=== PATIENT | female | born 1930 | race Caucasian/White ===

== ENCOUNTER 2017-03-04 07:57 | Inpatient (IN) ==
--- NOTE | 2017-03-04 08:25 | Emergency Department Note ---
Disposition Clinical Impression: Paroxysmal a-fib Disposition: Admitted As Inpatient Condition: Good Time of Disposition: 10:27 General Adult HPI - General Chief complaint: ED Weakness Stated complaint: general weakness Time Seen by Provider: 03/04/17 08:04 Source: EMS Limitations: no limitations Nursing Notes Reviewed: Yes Vital Signs Reviewed: Yes - History of Present Illness HPI Narrative: Patient has been on prednisone and Lasix for about a week. This morning he states that she got very weak. She states she is feeling better at this time. She does have a history of A. fib but is in A. fib at this time. Has been mentating appropriately for EMS throughout transport. Pain Scale: 0 - Related Data Home Medications Medication Instructions Recorded Confirmed Potassium Chloride [Klor-Con 10] 10 meq PO DAILY 10/19/16 03/04/17 Pravastatin Sodium [Pravachol] 20 mg PO DAILY 10/19/16 03/04/17 Raloxifene [Evista] 60 mg PO DAILY 10/19/16 03/04/17 Travoprost [Travatan Z] 1 drop LEFT EYE QPM 10/19/16 03/04/17 Aspirin [Ecotrin] 325 mg PO DAILY 03/04/17 03/04/17 Bisacodyl [Dulcolax] 5 mg PO DAILY 03/04/17 03/04/17 Calcium Carb,Cit/D3/Phytostrol 1 each PO DAILY 03/04/17 03/04/17 [Citracal D + Heart Health Tab] DiphenhydraMINE [Benadryl] 25 mg PO Q4HR PRN 03/04/17 03/04/17 Furosemide [Lasix] 20 mg PO DAILY 03/04/17 03/04/17 Metoprolol XL (24 HR) Succ [Toprol 50 mg PO DAILY 03/04/17 03/04/17 XL] Multivit-Min/Iron/Folic/Lutein 1 each PO DAILY 03/04/17 03/04/17 [Centrum Silver Women Tablet] Timolol Maleate 0.5% [Timolol 1 drop LEFT EYE QAM 03/04/17 03/04/17 Maleate 0.5%] predniSONE [PredniSONE] 20 mg PO DAILY 03/04/17 03/04/17 Allergies Allergy/AdvReac Type Severity Reaction Status Date / Time No Known Allergies Allergy Verified 10/19/16 16:23 Review of Systems: Denies any fevers or chills. Denies any headaches or vision changes. Does report generalized weakness earlier this morning that is since resolved. Reports lower extremity edema that is significantly improved. Denies any shortness of breath or chest pain. Denies any nausea vomiting or diarrhea. Denies any abdominal pain. Denies any urinary symptoms hematochezia melena or hematuria. All systems ED: reviewed and negative except as stated. Past Medical History - Past Medical History Attestation: Yes The following information was validated with the patient. Medical history: Reports: atrial fibrillation, hypertension, other Psychiatric history: Reports: no psych history - Social History Smoking Status: Never smoker Smokeless Tobacco Status: No Alcohol use: Reports: none Drug use: Reports: none Physical Exam - General Limitations: no limitations General appearance: alert, in no apparent distress - Head Head exam: atraumatic, normocephalic, normal inspection - Eye Eye exam: Present: normal appearance, PERRL, EOMI. Absent: scleral icterus - ENT ENT exam: normal exam, normal oropharynx, mucous membranes moist - Neck Neck exam: Present: normal inspection, full ROM, trachea midline. Absent: tenderness, meningismus - Chest Chest inspection: Present: normal inspection, symmetric chest wall rise. Absent : tenderness, rash - Respiratory Respiratory exam: Present: normal lung sounds bilaterally. Absent: respiratory distress, wheezes - Cardiovascular Cardiovascular exam: Present: tachycardia, irregular rhythm, normal heart sounds - Abdominal Exam Abdominal exam: Present: soft, Non-Tender, normal bowel sounds, other ( umbilical hernia, not painful, chronic). Absent: tenderness, distention, guarding, rebound, rigidity, organomegaly - Extremities Exam Extremities exam: Present: normal inspection, full ROM, normal capillary refill , pedal edema (Mild). Absent: tenderness - Back Exam Back exam: Present: normal inspection, full ROM. Absent: tenderness, CVA tenderness (R), CVA tenderness (L) - Neurological Exam Neurological exam: Present: alert, oriented X3 - Psychiatric Psychiatric exam: Present: normal affect, normal mood - Skin Skin exam: Present: warm, dry, intact, normal color, other (Lower extremity skin is shrunken. Appears to have been distended recently but is significantly wrinkled at this time.). Absent: rash, cyanosis, diaphoresis, erythema Course Course Narrative: Well-appearing female patient presenting to emergency department complaining of weakness that started today. She states that she has been on Lasix as well as prednisone. She states that she was on an unknown antibiotic and got a rash so she was then placed on prednisone. She states that she is tapering this down currently. She states the Lasix has worked well to decrease the swelling in her lower extremities. She has been on this for several days as well. She states that this morning she woke up and went to the bathroom but just felt very weak. Percent advises that she was standing at the sink and was too weak to walk or talk. Patient states that she could talk she was just too tired and weak. She denies any episodes of shortness of breath or chest pain associated with this. She states that at this time she is feeling 100% better. Patient's lung sounds are clear heart tones are normal. I do not appreciate any rashes to her body. She states that this has cleared up. She is in A. fib at this time. She states that she does have a history of being in A. fib but is only taking aspirin daily. She states that she thinks that she goes in and out of atrial fibrillation. She denies ever having to be cardioverted. She states she has also had a discussion with her doctor about being on anticoagulation that she did not understand the whole conversation. We will do a cardiac workup on the patient at this time. I anticipate admission for her A. fib. - Reevaluation(s) Reevaluation #1: I cannot find a history of patient being worked up for her atrial fibrillation. We will do a bedside fecal occult blood test due to patient's hemoglobin beings minimally low. We will begin patient on heparin and have her admitted to the hospital for A. fib. We will give her morning dose of Toprol to help rate control her while she is here. I cannot find any information that she has seen a deputy director of finance before for this. She states that she has. Time: 10:04 - Consultations Consultation #1: I spoke with Dr Mark. He is agreeable with the plan and to admit to the hospitalist. Time: 10:22 Consultation #2: I spoke with the nurse practitioner Jael. She is excepting the patient's stable condition. I made her aware that we are still waiting on the fecal occult blood to come back and if negative she states she will place the patient on heparin. I will no longer be following this patient. Time: 10:27 Vital Signs Temperature 97.4 F L 03/04/17 08:04 Pulse Rate 108 03/04/17 08:04 Respiratory Rate 14 03/04/17 08:04 Blood Pressure 120/89 03/04/17 08:04 O2 Sat by Pulse Oximetry 100 03/04/17 08:04 Temperature 97.6 F 03/04/17 16:30 Pulse Rate 72 03/04/17 16:30 Respiratory Rate 16 03/04/17 16:30 Blood Pressure 129/79 03/04/17 16:30 O2 Sat by Pulse Oximetry 98 03/04/17 16:30 Oxygen Delivery Oxygen Delivery Room Air Medical Decision Making - Medical Records Medical records reviewed: Yes I reviewed the patient's medical records. - Lab Data Lab results reviewed: Yes I reviewed the patient's lab results. Result diagrams: 03/04/17 08:34 03/04/17 08:34 Lab Results 03/04/17 03/04/17 03/04/17 Range/Units 08:14 08:34 08:34 WBC 21.4 H (4.3-11.1) K/mcL RBC 3.61 L (3.82-4.97) M/mcL Hgb 10.2 L (11.5-15.4) g/dL Hct 31.2 L (35.3-44.9) % MCV 86.4 (83.0-100.0) fL MCH 28.3 (28.0-33.3) pg MCHC 32.7 (31.6-35.5) g/dL RDW 13.6 (11.5-14.5) % Plt Count 340 (140-400) K/mcL MPV 10.0 (9.4-12.4) fL Immature Gran % 1.4 (0-4) % Seg Neutrophils % 68.8 % Lymphocytes % 19.4 % Monocytes % 9.9 % Eosinophils % 0.4 % Basophils % 0.1 % Neutrophils # 14.8 H (1.6-8.9) K/mcL Lymphocytes # 4.2 (0.6-4.6) K/mcL Monocytes # 2.1 H (0.0-1.3) K/mcL Eosinophils # 0.1 (0.0-0.6) K/mcL Basophils # 0.0 (0.0-0.2) K/mcL Immature Plt Fraction 4.7 (1.1-6.1) % Sodium 137 (136-145) mEq/L Potassium 3.7 (3.5-4.5) mEq/L Chloride 101 (98-109) mEq/L Carbon Dioxide 29 (19-29) mEq/L BUN 46 H (7-20) mg/dL Creatinine 0.67 (0.57-1.11) mg/dL Est GFR ( Amer) > 60 (> 60) Est GFR (Non-Af Amer) > 60 (> 60) BUN/Creatinine Ratio 69 H (6-26) Glucose 88 (70-99) mg/dL POC Glucose 97 H (58-89) Calculated Osmolality 295 (280-300) Calcium 8.4 L (8.6-10.8) mg/dL Total Bilirubin 0.5 (0.2-1.2) mg/dL AST 16 (5-34) Units/L ALT 18 (0-55) Units/L Alkaline Phosphatase 38 (38-126) Units/L Troponin I (0-0.03) ng/mL Serum Total Protein 6.3 (6.0-8.3) g/dL Albumin 3.2 L (3.5-5.0) g/dL Globulin 3.1 (2.4-3.5) g/dL Albumin/Globulin Ratio 1.0 L (1.1-2.2) TSH 1.247 (0.350-4.840) mcIU/mL Urine Color (Yellow) Urine Clarity (Clear) Urine pH (5.0-8.0) pH Units Ur Specific [place] (1.010-1.025) Urine Protein (Neg-Trace) mg/dL Urine Glucose (UA) (Normal) mg/dL Urine Ketones (Negative) mg/dL Urine Blood (Negative) Urine Nitrite (Negative) Urine Bilirubin (Negative) Urine Urobilinogen (Normal) mg/dL Ur Leukocyte Esterase (Negative) Ur Culture Indicated? (NO) Stool Occult Blood (Negative) 03/04/17 03/04/17 03/04/17 Range/Units 08:34 09:40 09:57 WBC (4.3-11.1) K/mcL RBC (3.82-4.97) M/mcL Hgb (11.5-15.4) g/dL Hct (35.3-44.9) % MCV (83.0-100.0) fL MCH (28.0-33.3) pg MCHC (31.6-35.5) g/dL RDW (11.5-14.5) % Plt Count (140-400) K/mcL MPV (9.4-12.4) fL Immature Gran % (0-4) % Seg Neutrophils % % Lymphocytes % % Monocytes % % Eosinophils % % Basophils % % Neutrophils # (1.6-8.9) K/mcL Lymphocytes # (0.6-4.6) K/mcL Monocytes # (0.0-1.3) K/mcL Eosinophils # (0.0-0.6) K/mcL Basophils # (0.0-0.2) K/mcL Immature Plt Fraction (1.1-6.1) % Sodium (136-145) mEq/L Potassium (3.5-4.5) mEq/L Chloride (98-109) mEq/L Carbon Dioxide (19-29) mEq/L BUN (7-20) mg/dL Creatinine (0.57-1.11) mg/dL Est GFR ( Amer) (> 60) Est GFR (Non-Af Amer) (> 60) BUN/Creatinine Ratio (6-26) Glucose (70-99) mg/dL POC Glucose (58-89) Calculated Osmolality (280-300) Calcium (8.6-10.8) mg/dL Total Bilirubin (0.2-1.2) mg/dL AST (5-34) Units/L ALT (0-55) Units/L Alkaline Phosphatase (38-126) Units/L Troponin I 0.02 (0-0.03) ng/mL Serum Total Protein (6.0-8.3) g/dL Albumin (3.5-5.0) g/dL Globulin (2.4-3.5) g/dL Albumin/Globulin Ratio (1.1-2.2) TSH (0.350-4.840) mcIU/mL Urine Color Yellow (Yellow) Urine Clarity Clear (Clear) Urine pH 6.0 (5.0-8.0) pH Units Ur Specific [place] 1.023 (1.010-1.025) Urine Protein Negative (Neg-Trace) mg/dL Urine Glucose (UA) Normal (Normal) mg/dL Urine Ketones Negative (Negative) mg/dL Urine Blood Negative (Negative) Urine Nitrite Negative (Negative) Urine Bilirubin Negative (Negative) Urine Urobilinogen Normal (Normal) mg/dL Ur Leukocyte Esterase Negative (Negative) Ur Culture Indicated? NO (NO) Stool Occult Blood Negative (Negative) - Radiology Data Radiology results reviewed: Yes I reviewed the patient's radiology results. Chest X-Ray 03/04/17 08:07 IMPRESSION: No acute cardiopulmonary disease. D/ / Man Barnard MD / Man Barnard MD Interpreting Provider: Man Barnard MD - EKG Data EKG #1 EKG attestation: Yes I reviewed and interpreted this EKG. EKG results narrative: A. fib with RVR at a rate of 106. QRS duration is 82. QT is 343. QTC is 405. No signs of acute ischemia. Patient's previous EKG was a normal sinus rhythm dated 06/22/2012. Attestation Statement - Attestation Attestation: I, Ke Chery, examined this patient and my medical decision-making was reviewed with the ENGINE BUILDER/PA/Advanced Practice Nurse/Resident Physician. I agree with the documented findings, disposition and treatment plan as described except to the extent set forth below. 87-year-old female presents with concerns of acute onset weakness and near syncopal episode. Patient is in atrial fibrillation, she does have a history of atrial fibrillation but is unsure whether or not she is always and such rhythm. Patient states she woke this morning and felt considerably weak and fatigued const improved after laying down but returned again after standing. Patient reports she was recently diagnosed with congestive heart failure, they increased her Lasix to decrease the amount of fluid in her legs and also prescribed prednisone for a rash on her legs.. Patient states her symptoms have improved significantly since the onset of those medications. She felt well 2 days ago. Patient does not take any anticoagulant medication. She states that she was spoken to her by her primary care provider but she did not fully understand why anticoagulation was 4 and thus did not start it. Patient' s rate was controlled with her home dose of metoprolol. Patient felt comfortable with the plan for admission to the hospital for further care and evaluation of her weakness, near syncope and intrafibrillation with RVR.
[2017-03-04 08:42] LABS: Basophils % 0.1 %; Eosinophils # 0.1 K/mcL (0.0-0.6); Eosinophils % 0.4 %; Hematocrit 31.2 % (35.3-44.9); Hemoglobin 10.2 g/dL (11.5-15.4); Immature Granulocytes % 1.4 % (0-4); Immature Platelets 4.7 % (1.1-6.1); Lymphocytes # 4.2 K/mcL (0.6-4.6); Lymphocytes % 19.4 %; Mean Corpuscular HGB Conc 32.7 g/dL (31.6-35.5); Mean Corpuscular Hemoglobin 28.3 pg (28.0-33.3); Mean Corpuscular Volume 86.4 fL (83.0-100.0); Monocytes # 2.1 K/mcL (0.0-1.3); Monocytes % 9.9 %; Neutrophils # 14.8 K/mcL (1.6-8.9); Platelet Count 340 K/mcL (140-400); Red Blood Count 3.61 M/mcL (3.82-4.97); Red Cell Distribution Width 13.6 % (11.5-14.5); Segmented Neutrophils % 68.8 %
[2017-03-04 08:53] LABS: Alanine Aminotransferase 18 Units/L (0-55); Albumin 3.2 g/dL (3.5-5.0); Alkaline Phosphatase 38 Units/L (38-126); Aspartate Amino Transferase 16 Units/L (5-34); BUN/Creatinine Ratio 69 (6-26); Bilirubin,Total 0.5 mg/dL (0.2-1.2); Blood Urea Nitrogen 46 mg/dL (7-20); Calcium 8.4 mg/dL (8.6-10.8); Carbon Dioxide 29 mEq/L (19-29); Chloride 101 mEq/L (98-109); Globulin 3.1 g/dL (2.4-3.5); Glucose 88 mg/dL (70-99); Osmolality,Calculated 295 (280-300); Potassium 3.7 mEq/L (3.5-4.5); Sodium 137 mEq/L (136-145); Total Protein 6.3 g/dL (6.0-8.3); eGFR For African Americans > 60 (> 60); eGFR For Non-African Americans > 60 (> 60)
[2017-03-04 09:14] LABS: Thyroid Stimulating Hormone 1.247 mcIU/mL (0.350-4.840)
[2017-03-04 09:55] LABS: Bilirubin,Urine Negative (Negative); Blood,Urine Negative (Negative); Clarity,Urine Clear (Clear); Color,Urine Yellow (Yellow); Glucose,Urine (UA) Normal (Normal); Ketones,Urine Negative (Negative); Leukocyte Esterase,Urine Negative (Negative); Nitrite,Urine Negative (Negative); Protein,Urine Negative (Neg-Trace); Specific Gravity,Urine 1.023 (1.010-1.025); Urobilinogen,Urine Normal (Normal)
[2017-03-04] MEDS ORDERED: Metoprolol XL (24 HR) Succ 50 MG TAB.ER.24H PO STA (10:16)
--- NOTE | 2017-03-04 10:28 | Electrocardiograph Report ---
[facility] Test Date: 2017-03-04 Pat Name: Haven Medina Department: 105 Room: Gender: F Snap Shearer: JADIEL : 1930 Requested By: Tracy Pepper Order Number: [id number] Reading MD: Anthony Edmonds MD Measurements Intervals [place] Rate: 106 P: MO: 0 QRS: -35 QRSD: 82 T: 21 QT: 343 QTc: 405 Interpretive Statements ATRIAL FIBRILLATION WITH RAPID VENTRICULAR RESPONSE MARKED LEFT AXIS DEVIATION [QRS AXIS < -30] POSSIBLE RIGHT VENTRICULAR CONDUCTION DELAY [RSR (QR) IN V1/V2] MINIMAL VOLTAGE CRITERIA FOR LVH, CONSIDER NORMAL VARIANT [MEETS CRITERIA IN ONE OF: R(aVL), S(V1), R(V5), R(V5/V6)+S(V1)] Electronically Signed On 03-04-2017 10:27:05 EDT by Anthony Edmonds MD
[2017-03-04] MEDS ORDERED: Naloxone 0.4 MG/ML INJ IVP PRN (10:56)
[2017-03-04] MEDS ORDERED: predniSONE 20 MG TABLET PO SCH (11:15)
--- NOTE | 2017-03-04 11:17 | Internal Med History&Physical ---
<Kristen Cast - Last Filed: 03/04/17 11:26> Date of Encounter: 03/04/17 Time of Encounter: 11:09 Assessment and Plan (1) Atrial fibrillation with rapid ventricular response Current visit: Yes Status: Acute hx paroxysmal atrial fibrillation, on ASA. EKG with a-fib RVR, HRs 120s on arrival. Hemodynamically stable. Home BB given in the ED (monitor response, consider CCB if not rate controlled). Anticoagulation with Lovenox. Trop 0.02. TSH 1.2. Cardiology consulted. Cycle troponin, BNP and echo pending (2) Cellulitis Current visit: Yes Status: Acute diagosed 2 weeks prior to admission per PCP. Treated with ATB and had allergic reaction with rash and leg swelling (patient unsure of which ATB). Does not appear infected on exam. WBC elevated but ij the setting of steroid taper for allergic reaction. Hold on ATB, cont prednisone taper. Qualifiers: Site of cellulitis of extremity: lower extremity Laterality: left Qualified Code(s): L03.116 - Cellulitis of left lower limb (3) Leukocytosis Current visit: Yes Status: Acute WBC 21K. On steroid taper for allergic reaction to ATB for cellulitis. No current sx of infection, CXR and UA negative. afebrile. Cont steroid taper (has 3 days left of 20mg). Lactic acid pending Qualifiers: Qualified Code(s): D72.829 - Elevated white blood cell count, unspecified (4) Anemia Current visit: Yes Status: Acute Hgb 10.2; baseline appears to be 13. Occult stool negative. Denies melena. No obvious bleeding. Iron studies pending. Monitor Hgb Qualifiers: Anemia type: unspecified type Qualified Code(s): D64.9 - Anemia, unspecified (5) Hypertension Current visit: Yes Status: Acute per hx. BP soft/borderline. Cont home BB. Monitor BP and titrate PRN Qualifiers: Qualified Code(s): I10 - Essential (primary) hypertension (6) DVT prophylaxis Current visit: Yes Status: Acute [facility] Internal Medicine - H&P: HPI Chief complaint: weakness History of present illness: Ms. Medina is a 87 year old female PMH HTN, HLD and recent cellulitis who presented to [facility] on 03/04/2017 with complaints of weakness and near syncope. She was found to be in A-fib with RVR; placed in observation status for rate control , anticoagulation and Cardiology evaluation. Information obtained form chart review an patient report. Patient says she woke up this morning and felt a little tired and weak so went back to bed. Got back up a few hours later when she became weak and felt like she was going to pass out while standing at bathroom sink. No chest pain, no SOB, no palpitations. She called son and was brought to thr ED. Says she feels better now. Recently diagnosed with lower extremity cellulitis and was started on ATB per PCP. HAd allergic reaction and now on prednisone. Past Med Surg Social Fam HX - Past Medical History Medical history: atrial fibrillation, hypertension, other Psychiatric history: no psych history - Past Surgical History Surgical History: hip replacement - Social History Smoking Status: Never smoker Smokeless Tobacco Status: No Alcohol use: none Drug use: none - Additional Family History Additional family history: reviewed amd non-contributory Internal Medicine - H&P: Meds Potassium Chloride [Klor-Con 10] 10 meq PO DAILY 10/19/16 [History] Pravastatin Sodium [Pravachol] 20 mg PO DAILY 10/19/16 [History] Raloxifene [Evista] 60 mg PO DAILY 10/19/16 [History] Travoprost [Travatan Z] 1 drop LEFT EYE QPM 10/19/16 [History] Aspirin [Ecotrin] 325 mg PO DAILY 03/04/17 [History] Bisacodyl [Dulcolax] 5 mg PO DAILY 03/04/17 [History] Calcium Carb,Cit/D3/Phytostrol [Citracal D + Heart Health Tab] 1 each PO DAILY 03/04/17 [History] DiphenhydraMINE [Benadryl] 25 mg PO Q4HR PRN 03/04/17 [History] Furosemide [Lasix] 20 mg PO DAILY 03/04/17 [History] Metoprolol XL (24 HR) Succ [Toprol XL] 50 mg PO DAILY 03/04/17 [History] Multivit-Min/Iron/Folic/Lutein [Centrum Silver Women Tablet] 1 each PO DAILY 05/13 [History] Timolol Maleate 0.5% [Timolol Maleate 0.5%] 1 drop LEFT EYE QAM 03/04/17 [ History] predniSONE [PredniSONE] 20 mg PO DAILY 03/04/17 [History] Allergies No Known Allergies Allergy (Verified 10/19/16 16:23) All Systems PM: A 10-system review of systems was performed and is negative for pertinent findings except as documented above in the HPI. - Constitutional Constitutional: no chills, no fever(s), no night sweats - EENT Eyes: no change in vision, no discharge, no pain, no photophobia Ears: no ear discharge, no ear pain, no tinnitus Nose, mouth and throat: no dysphagia, no nasal discharge, no neck pain, no sore throat - Cardiovascular Cardiovascular ROS IM: no chest pain, no diaphoresis, no dyspnea, no lightheadedness, no palpitations, no syncope - Respiratory Respiratory: no cough, no dyspnea, no wheezing, no excessive phlegm production - Gastrointestinal Gastrointestinal: no abdominal pain, no diarrhea, no hematemesis, no hematochezia, no melena, no nausea, no vomiting - Genitourinary Genitourinary: no change in urinary stream, no dysuria, no flank pain, no hematuria - Musculoskeletal Musculoskeletal ROS IM: no numbness, no tingling - Integumentary Integumentary IM: no rash, no unusual bruising - Neurological Neurological ROS: no confusion, no convulsions, no focal weakness, no numbness, no tingling, no tremor(s) - Hematologic/Lymphatic Hematologic/Lymphatic: no easy bruising - Constitutional Vitals: Temp Pulse Resp BP Pulse Ox 97.4 F L 121 15 103/72 100 03/04/17 08:04 03/04/17 09:45 03/04/17 10:48 03/04/17 10:48 03/04/17 09:45 General appearance: Present: A&O X 3, no acute distress - Head Head exam: Present: atraumatic, normocephalic - Eye Eye exam: Present: PERRL, conjuntiva pink, sclera anicteric Pupils: Present: PERRL - Neck Neck exam general surgery: Present: supple, trachea midline. Absent: lymphadenopathy - Respiratory Respiratory exam: Present: CTAB. Absent: accessory muscle use, rales, rhonchi, wheezes - Cardiovascular Cardiovascular exam: Present: irregular rhythm, +S1, +S2, tachycardia. Absent: diastolic murmur, gallop, rubs, systolic murmur Additional comments: Tele: a-fib with RVR - GI/Abdominal GI/Abdominal exam: Present: normal bowel sounds, soft, no peritoneal signs. Absent: distended, tenderness - Extremities Exam Extremities exam: Present: warm, radial pulses palpable and symetrical. Absent : calf tenderness, cyanotic, pedal edema - Neurological Exam Neurological exam: Present: CN II-XII intact, oriented X3, no focal deficits. Absent: pronater drift, facial droop, speech deficit - Skin Skin exam: Present: dry, intact Additional comments: bilateral lower extremities with trace edema and mild erythema Internal Med - H&P Results - Labs CBC & Chem 7: 03/04/17 08:34 03/04/17 08:34 <Felicitas Panda E - Last Filed: 03/05/17 08:31> Date of Encounter: 03/05/17 Internal Medicine - H&P: HPI History of present illness: Ms. Medina is a 87 year old female All Systems PM: A 10-system review of systems was performed and is negative for pertinent findings except as documented above in the HPI. - Constitutional Vitals: Temp Pulse Resp BP Pulse Ox 99.3 F 138 16 108/70 96 03/05/17 07:41 03/05/17 07:41 03/05/17 07:41 03/05/17 07:41 03/05/17 07:41 Internal Med - H&P Results - Labs CBC & Chem 7: 03/05/17 07:06 03/05/17 04:12 Labs: Short CBC 03/05/17 03/05/17 Range/Units 04:12 07:06 WBC 16.2 H 16.0 H (4.3-11.1) K/mcL Hgb 7.6 L D 7.8 L (11.5-15.4) g/dL Hct 23.1 L 23.8 L (35.3-44.9) % Plt Count 257 281 (140-400) K/mcL Neutrophils # 9.9 H 10.5 H (1.6-8.9) K/mcL BMP 03/05/17 04:12 Sodium 142 Potassium 3.8 Chloride 112 H Carbon Dioxide 25 BUN 44 H Creatinine 0.61 Glucose 95 Calcium 7.7 L Liver Function 03/05/17 Range/Units 04:12 Total Bilirubin 0.3 (0.2-1.2) mg/dL AST 15 (5-34) Units/L ALT 15 (0-55) Units/L Alkaline Phosphatase 28 L (38-126) Units/L Albumin 2.5 L D (3.5-5.0) g/dL - Attending Attestation This is a late entry for a patient I examined and reviewed laboratory, imaging and all diagnostic data on 03/04/17. My medical decision-making was reviewed with Kristen Castelan NP. I agree with the documented findings, disposition and treatment plan as described above. History and exam by me shows: patient is asymptomatic. EKG showed afib hr 106. echo. CHADs-VASC of 4. Appreciate cardiology input. started on lopressor and lovenox.
--- NOTE | 2017-03-04 12:31 | Cardiology Consult Note ---
Date of Encounter: 03/04/17 Time of Encounter: 12:15 Assessment and Plan (1) Atrial fibrillation Current Visit: Yes Status: Acute Presented with AF with RVR in the setting of LE cellulitis, leukocytosis. Hx of afib since December 2014; has been on Toprol XL 50 mg for rate control and ASA 325 mg daily for CVA prevention. Given home medication in the ED, HR now in the 90's. Will increase betablocker today. Kidney function, electrolytes stable. TSH normal. TTE December 2014: EF 60%, mild MR/TR/PH Continue to monitor telemetry, agree with TTE. CHA2Ds Vasc= 4 (HTN, age, female). Ideally, recommend full anticoagulation. Patient presented with anemia (H/H 10.2/31.2); occult stool pending--denies abnormal or unusual bleeding, or melena. If H/H remains stable, consider full AC. Discussed NOAC vs. coumadin with patient, she will consider starting NOAC by discharge. Continue therapeutic lovenox for now. Qualifiers: Atrial fibrillation type: chronic Qualified Code(s): I48.2 - Chronic atrial fibrillation Discussion w patient/family: The assessment and plan as outlined above was discussed with the patient and/or family members who expressed understanding and agreement. All questions were answered. Thank you for involving us in the care of your patient. Please call with any questions. The patient will be discussed and reviewed with Dr. Mark; changes to be made accordingly. History of Present Illness Consult date: 03/04/17 Requesting physician: Tracy Pepper Consult reason: Afib Chief complaint: Weakness History of present illness: Ms. Medina is a 87 year old female with PMH significant for OA, chronic AF, HTN, and HLD who presented to [facility] ED via squad due to worsening weakness that started this AM. Associated symptoms included fatigue, she states she nearly fell from walking to her bedroom to kitchen due to muscle weakness. Reports nearly 3 weeks ago she developed lower extremity and swelling (L>R) was started on Keflex due to suspected infection and also lasix for swelling. Several days later she developed a generalized body rash, PCP felt to be secondary to antibiotic and was then started on oral steroids and was also given IM injection of steroids in office. Cardiology consulted today for atrial fibrillation with RVR. Patient has not been on full anticoagulation in the past, states did not feel comfortable starting blood thinners; has been on ASA 325 mg daily and Toprol XL 50 mg daily for rate control. Prior testing: TTE 01/21/15: LVEF 60%, afib 90-100's during study, normal RV structure and function, mild MR, mild TR, mild PH, normal wall motion. Past Med Surg Social Fam HX - Past Medical History Attestation: Yes The following information was validated with the patient. Source: patient, old records reviewed Medical history: arthritis, atrial fibrillation, hyperlipidemia, hypertension Psychiatric history: no psych history - Past Surgical History Surgical History: hip replacement (left) - Social History Smoking Status: Never smoker Smokeless Tobacco Status: No Alcohol use: none Drug use: none Current living situation: Home - Independent Medications and Allergies Potassium Chloride [Klor-Con 10] 10 meq PO DAILY 10/19/16 [History] Pravastatin Sodium [Pravachol] 20 mg PO DAILY 10/19/16 [History] Raloxifene [Evista] 60 mg PO DAILY 10/19/16 [History] Travoprost [Travatan Z] 1 drop LEFT EYE QPM 10/19/16 [History] Aspirin [Ecotrin] 325 mg PO DAILY 03/04/17 [History] Bisacodyl [Dulcolax] 5 mg PO DAILY 03/04/17 [History] Calcium Carb,Cit/D3/Phytostrol [Citracal D + Heart Health Tab] 1 each PO DAILY 03/04/17 [History] DiphenhydraMINE [Benadryl] 25 mg PO Q4HR PRN 03/04/17 [History] Furosemide [Lasix] 20 mg PO DAILY 03/04/17 [History] Metoprolol XL (24 HR) Succ [Toprol XL] 50 mg PO DAILY 03/04/17 [History] Multivit-Min/Iron/Folic/Lutein [Centrum Silver Women Tablet] 1 each PO DAILY 05/13 [History] Timolol Maleate 0.5% [Timolol Maleate 0.5%] 1 drop LEFT EYE QAM 03/04/17 [ History] predniSONE [PredniSONE] 20 mg PO DAILY 03/04/17 [History] Allergies No Known Allergies Allergy (Verified 10/19/16 16:23) All Systems Review: A 10-system review of systems was performed and is negative for pertinent findings except as documented above in the HPI. - Cardiovascular Cardiovascular: as per HPI Physical Examination Vital Signs, Last 4 Hours Temp Pulse Pulse Pulse Pulse Resp BP 03/04/17 11:56 75 55 110 03/04/17 11:54 98.1 F 68 14 134/78 03/04/17 10:48 15 103/72 BP BP BP Pulse Ox 03/04/17 11:56 134/78 122/75 101/68 03/04/17 11:54 97 03/04/17 10:48 General: Conversant, No Apparent Distress HEENT: Atraumatic, Normocephaly, Mucus Membranes Moist Cardiac: Other (irregularly irregular) Lungs: Normal Breath Sounds Neuro: Alert and responsive Abdomen: Soft Skin: No rashes noted on visualized skin Musculoskeletal: No Chest Wall Tenderness Extremities: Other (mild pre-tibial edema and redness, L>R) Results 03/04/17 08:34 03/04/17 08:34 - Imaging and Cardiology Echo: pending, report reviewed Other Results: HR 90's afib. - EKG Interpretation EKG results cardiology: personally reviewed Consult Discharge Plan - Plan Referrals: Mike King Jr, MD [Primary Care Provider] -
[2017-03-04] MEDS ORDERED: Metoprolol XL (24 HR) Succ 25 MG TAB.ER.24H PO ONE (12:45)
[2017-03-04] MEDS: *HR* Enoxaparin 80 MG/0.8 ML SYRINGE SQ SCH (21:11)
[2017-03-04] MEDS: Latanoprost 2.5 ML BOTTLE LEFT EYE SCH (21:12)
[2017-03-05 05:19] LABS: Basophils % 0.2 %; Eosinophils # 0.4 K/mcL (0.0-0.6); Eosinophils % 2.4 %; Hematocrit 23.1 % (35.3-44.9); Immature Granulocytes % 1.1 % (0-4); Lymphocytes # 4.2 K/mcL (0.6-4.6); Lymphocytes % 25.8 %; Mean Corpuscular HGB Conc 32.9 g/dL (31.6-35.5); Mean Corpuscular Hemoglobin 28.9 pg (28.0-33.3); Mean Corpuscular Volume 87.8 fL (83.0-100.0); Mean Platelet Volume 10.9 fL (9.4-12.4); Monocytes # 1.6 K/mcL (0.0-1.3); Monocytes % 9.6 %; Neutrophils # 9.9 K/mcL (1.6-8.9); Nucleated Red Blood Cells 0.1 /100 WBC (0); Platelet Count 257 K/mcL (140-400); Red Blood Count 2.63 M/mcL (3.82-4.97); Red Cell Distribution Width 14.3 % (11.5-14.5); Segmented Neutrophils % 60.9 %
[2017-03-05 05:21] LABS: Hemoglobin 7.6 g/dL (11.5-15.4)
[2017-03-05 05:35] LABS: Alanine Aminotransferase 15 Units/L (0-55); Albumin/Globulin Ratio 1.1 (1.1-2.2); Alkaline Phosphatase 28 Units/L (38-126); Aspartate Amino Transferase 15 Units/L (5-34); BUN/Creatinine Ratio 72 (6-26); Bilirubin,Total 0.3 mg/dL (0.2-1.2); Blood Urea Nitrogen 44 mg/dL (7-20); Calcium 7.7 mg/dL (8.6-10.8); Carbon Dioxide 25 mEq/L (19-29); Chloride 112 mEq/L (98-109); Globulin 2.3 g/dL (2.4-3.5); Glucose 95 mg/dL (70-99); Osmolality,Calculated 305 (280-300); Potassium 3.8 mEq/L (3.5-4.5); Sodium 142 mEq/L (136-145); eGFR For African Americans > 60 (> 60); eGFR For Non-African Americans > 60 (> 60)
[2017-03-05 05:46] LABS: Albumin 2.5 g/dL (3.5-5.0); Total Protein 4.8 g/dL (6.0-8.3)
[2017-03-05] MEDS: *HR* Enoxaparin 80 MG/0.8 ML SYRINGE SQ SCH (06:26)
[2017-03-05] MEDS: predniSONE 20 MG TABLET PO SCH (07:54)
[2017-03-05] MEDS: Metoprolol XL (24 HR) Succ 50 MG TAB.ER.24H PO SCH (07:55)
[2017-03-05 07:59] LABS: Basophils % 0.3 %; Eosinophils # 0.3 K/mcL (0.0-0.6); Eosinophils % 1.6 %; Hematocrit 23.8 % (35.3-44.9); Hemoglobin 7.8 g/dL (11.5-15.4); Immature Granulocytes % 0.9 % (0-4); Lymphocytes # 3.7 K/mcL (0.6-4.6); Lymphocytes % 22.9 %; Mean Corpuscular HGB Conc 32.8 g/dL (31.6-35.5); Mean Corpuscular Hemoglobin 28.9 pg (28.0-33.3); Mean Corpuscular Volume 88.1 fL (83.0-100.0); Mean Platelet Volume 10.8 fL (9.4-12.4); Monocytes # 1.3 K/mcL (0.0-1.3); Monocytes % 8.3 %; Neutrophils # 10.5 K/mcL (1.6-8.9); Nucleated Red Blood Cells 0.2 /100 WBC (0); Platelet Count 281 K/mcL (140-400); Red Cell Distribution Width 14.4 % (11.5-14.5)
[2017-03-05] MEDS ORDERED: Metoprolol XL (24 HR) Succ 50 MG TAB.ER.24H PO SCH (09:00)
--- NOTE | 2017-03-05 12:24 | Internal Med Progress Note ---
Date of Encounter: 03/05/17 Time of Encounter: 08:30 - Assessment and plan (1) Atrial fibrillation with rapid ventricular response Current Visit: Yes Status: Acute Assessment and plan: Patient was admitted through the emergency department in A. fib RVR. History of same in the past. She has been on aspirin. Rate was 120s in the emergency room. She denies any symptoms at all other than feeling fatigued exertion. She denies chest pain, shortness of breath, palpitations. Patient is also being anticoagulated with Lovenox while in the hospital, however, this had to be stopped due to anemia. Troponin was negative, 0.02. TSH is within normal limits at 1.2. Cardiology was consulted and change beta inez to metoprolol 75 mg daily. They also recommended stopping the aspirin and starting Eliquis 5 mg by mouth twice a day, both of which have been stopped due to anemia. Patient was given the new, increased dose of metoprolol this morning without effect. She still remained A. fib RVR with a rate 130s to 140s. I spoke with cardiology regarding this and her anemia, Cardizem 30 mg by mouth every 6 hours was started and the Eliquis was stopped. Echo done yesterday showed LVEF 65-70%, normal systolic function, indeterminate diastolic function. Continue telemetry Cardizem 30mg po q6h Metoprolol 75mg po daily cardiology on board (2) Anemia Current Visit: Yes Status: Acute Assessment and plan: Patient has significant drop in hemoglobin overnight, from 10.2-7.6. She is not received IV fluid boluses, intake and output are well matched, she is not having any hematochezia, hematemesis, nausea, vomiting, diarrhea, abd pain. Urine and stool were both negative for blood. MCV is within normal limits, iron studies, B12, folate have been ordered. Patient denies symptoms other than feeling weak when she is walking, which could be due to either A. fib or anemia. I spoke with surgery, they will be here to see her this afternoon. Trend H and H every 6 hours Type and screen as complete Surgery consult pending. Qualifiers: Anemia type: unspecified type Qualified Code(s): D64.9 - Anemia, unspecified (3) Hypertension Current Visit: Yes Status: Acute Assessment and plan: Well-controlled in inpatient setting. Continue home medications. Continue to monitor for hypotension. Patient has been started on metoprolol 75 mg daily, as well as Cardizem 30 mg by mouth every 6 hours. Qualifiers: Hypertension type: essential hypertension Qualified Code(s): I10 - Essential (primary) hypertension (4) Cellulitis Current Visit: Yes Status: Acute Assessment and plan: Patient was diagnosed with lower extremity cellulitis 2 weeks ago. She appears to have what was nonallergic reaction to the antibiotic. It has been held and patient was placed on a prednisone taper. We will continue that while she is inpatient. Legs appear slightly reddened, however they do not appear infected there is no streaking, blisters, drainage. She denies pain or warmth, itching. She says the symptoms have all resolved. Qualifiers: Site of cellulitis of extremity: lower extremity Laterality: left Qualified Code(s): L03.116 - Cellulitis of left lower limb (5) Leukocytosis Current Visit: Yes Status: Acute Assessment and plan: Trending downward today white count is 16.2. Most likely due to steroid taper. We will continue the steroid taper and monitor labs. She has been afebrile and is not tachycardic. Continue to monitor labs and vital signs. Qualifiers: Leukocytosis type: unspecified Qualified Code(s): D72.829 - Elevated white blood cell count, unspecified (6) DVT prophylaxis Current Visit: No Status: Suspected Assessment and plan: We have stopped her Lovenox, as well as the aspirin and Eliquis due to anemia. We will continue to assess for anemia and need for anticoagulation once it is solved - Subjective Interval history: Patient was seen and assessed in about 8:30 AM. She is alert and oriented and very pleasant. She denies any kind of palpitations, chest pain, abdominal pain , shortness of breath. She says that she feels well other than she cannot walk very far without becoming tired and short of breath. She denies abdominal pain, nausea, vomiting, bright red rectal bleeding, vomiting blood. She said she has never had abdominal pain or any abdominal problems. She is eating a regular diet and does not appear to have any problems. I consulted Dr. Reeves for drop in hemoglobin. - Constitutional Vitals: Temp Pulse Resp BP Pulse Ox 98.2 F 112 16 87/56 98 03/05/17 11:07 03/05/17 11:07 03/05/17 11:07 03/05/17 11:07 03/05/17 11:07 General appearance: Present: A&O X 3, pleasant, no acute distress, answers questions appropriately - Head Head exam: Present: normal inspection - Eye Eye exam: Present: normal appearance, conjuntiva pink - ENT ENT exam: Present: mucous membranes moist, normal exam, normal external ear exam - Neck Neck exam general surgery: Present: normal inspection. Absent: lymphadenopathy , tenderness - Respiratory Respiratory exam: Present: CTAB. Absent: rales, respiratory distress, rhonchi, wheezes - Cardiovascular Cardiovascular exam: Present: irregular rhythm, +S1, +S2, tachycardia. Absent: bradycardia, clicks, diastolic murmur, gallop, systolic murmur - GI/Abdominal GI/Abdominal exam: Present: normal bowel sounds, soft. Absent: distended, guarding, hernia, hepatomegaly, tenderness - Extremities Exam Extremities exam: Present: normal capillary refill, normal inspection, warm, radial pulses palpable and symetrical. Absent: pedal edema, tenderness - Neurological Exam Neurological exam: Present: alert, oriented X3, no focal deficits, strengths equal and symetr throughout. Absent: altered, pronater drift, facial droop, speech deficit Internal Medicine: Result - Labs CBC & Chem 7: 03/05/17 07:06 03/05/17 04:12 Labs: Short CBC 03/05/17 03/05/17 Range/Units 04:12 07:06 WBC 16.2 H 16.0 H (4.3-11.1) K/mcL Hgb 7.6 L D 7.8 L (11.5-15.4) g/dL Hct 23.1 L 23.8 L (35.3-44.9) % Plt Count 257 281 (140-400) K/mcL Neutrophils # 9.9 H 10.5 H (1.6-8.9) K/mcL BMP 03/05/17 04:12 Sodium 142 Potassium 3.8 Chloride 112 H Carbon Dioxide 25 BUN 44 H Creatinine 0.61 Glucose 95 Calcium 7.7 L Liver Function 03/05/17 Range/Units 04:12 Total Bilirubin 0.3 (0.2-1.2) mg/dL AST 15 (5-34) Units/L ALT 15 (0-55) Units/L Alkaline Phosphatase 28 L (38-126) Units/L Albumin 2.5 L D (3.5-5.0) g/dL Consult Discharge Plan - Plan Referrals: Mike King Jr, MD [Primary Care Provider] -
--- NOTE | 2017-03-05 13:15 | Cardiology Progress Note ---
Date of Encounter: 03/05/17 Time of Encounter: 13:40 Assessment and Plan (1) Atrial fibrillation Current Visit: Yes Status: Acute Presented with AF with RVR in the setting of LE cellulitis, leukocytosis, and GI bleed Hx of afib since December 2014; has been on Toprol XL 50 mg for rate control and ASA 325 mg daily for CVA prevention. Continue betablocker, increased on 03/04/17 to 75 mg daily. Afib with RVR overnight, started on short-acting cardizem and now HR in the 90s. 12 hour tele: avg HR-119. Anticipate difficulty with rate control in the setting of acute GI bleed/blood loss anemia. Kidney function, electrolytes stable. TSH normal. TTE: EF 65-70% mild MR, mild AR, mild-moderate TR, normal wall motion CHA2Ds Vasc= 4 (HTN, age, female). Ideally, recommend full anticoagulation; however patient now with acute GI bleed and unable to be started on full anticoagulation, eliquis discontinued. Recommend GI consult; ideally resume ASA , if H/H stable and okay with GI by discharge or in the outpatient setting. Qualifiers: Atrial fibrillation type: chronic Qualified Code(s): I48.2 - Chronic atrial fibrillation Discussion w patient/family: The assessment and plan as outlined above was discussed with the patient and/or family members who expressed understanding and agreement. All questions were answered. Thank you for involving us in the care of your patient. Please call with any questions. The patient will be discussed and reviewed with Dr. Mark; changes to be made accordingly. Subjective Principal diagnosis: Afib, GI bleed Interval history: Seen and examined. Reports melena this AM. She has no other complaints other than generalized weakness. Discussed plan with primary service. Objective Vital Signs, Last 4 Hours Temp Pulse Resp BP Pulse Ox 03/05/17 11:07 98.2 F 112 16 87/56 98 General: Conversant, No Apparent Distress, Other (pale) Cardiac: Other (irregularly irregular) Lungs: Normal Breath Sounds Neuro: Alert and responsive Abdomen: Soft Skin: No rashes noted on visualized skin Musculoskeletal: No Chest Wall Tenderness Extremities: Other (mild BLE pre-tibial edema) Results 03/05/17 07:06 03/05/17 04:12 Lab Results 03/05/17 03/05/17 03/05/17 04:12 04:12 04:12 WBC 16.2 H Hgb 7.6 L D Hct 23.1 L Plt Count 257 Sodium 142 Potassium 3.8 Chloride 112 H Carbon Dioxide 25 BUN 44 H Creatinine 0.61 Glucose 95 Calcium 7.7 L Total Bilirubin 0.3 AST 15 ALT 15 Alkaline Phosphatase 28 L B-Natriuretic Peptide 170 H 03/05/17 07:06 WBC 16.0 H Hgb 7.8 L Hct 23.8 L Plt Count 281 Sodium Potassium Chloride Carbon Dioxide BUN Creatinine Glucose Calcium Total Bilirubin AST ALT Alkaline Phosphatase B-Natriuretic Peptide - Imaging and Cardiology Echo: report reviewed - EKG Interpretation EKG results cardiology: personally reviewed Consult Discharge Plan - Plan Referrals: Mike King Jr, MD [Primary Care Provider] -
[2017-03-05 13:59] LABS: Hematocrit 23.6 % (35.3-44.9); Hemoglobin 7.8 g/dL (11.5-15.4)
[2017-03-05 14:54] LABS: % Iron Saturation 18 % (15-50); Iron 57 mcg/dL (50-170); Transferrin 232 mg/dL (180-382)
[2017-03-05 15:34] LABS: Folate 15.1 ng/mL (7.0-31.4)
--- NOTE | 2017-03-05 15:52 | General Surgery Consult Note ---
Date of Encounter: 03/06/17 Time of Encounter: 15:50 Assessment and Plan (1) Anemia Current Visit: Yes Status: Acute I have explained to the patient that I do not have enough evidence to support that she has had any active GI bleeding at this time. Her Hemoccult test was negative and the 2 hemoglobin levels that were drawn today have been completely steady at 7.8. It is possible that the initial hemoglobin level was actually an artifact. I think will be appropriate to continue to monitor her hemoglobin levels if they indeed remain stable then I think it will be appropriate to just watch and have her follow-up for possible outpatient evaluation/endoscopy. Recommend iron profile to see if she has a low iron level which has been ordered by the primary service. This help specify the type of anemia and would determine whether or not iron supplementation will be appropriate. Thank you. Qualifiers: Anemia type: iron deficiency Iron deficiency anemia type: unspecified iron deficiency Qualified Code(s): D50.9 - Iron deficiency anemia, unspecified History of Present Illness Consult date: 03/05/17 History of present illness: The patient is an 87-year-old female who was admitted to [facility] secondary to RVR A. fib. I been asked to evaluate the patient due to her low hemoglobin level. She had a hemoglobin of approximately 10 yesterday and it was repeated to approximately 7.8 today. The patient did not have any IV fluid hydration she did not denies any abdominal pain nor any nausea or vomiting. She denies any diarrhea or constipation but states that she did have a dark-colored stool this morning and yesterday in which was in the ER following the dark color stool a Hemoccult was performed which was negative. She states that she normally has a bowel movement once or twice per day. I been asked to evaluate the patient with regards to her low hemoglobin count. Past Med Surg Social Fam HX - Past Medical History Medical history: atrial fibrillation, hypertension, other Psychiatric history: no psych history - Past Surgical History Surgical History: hip replacement (left) - Social History Smoking Status: Never smoker Smokeless Tobacco Status: No Alcohol use: none Drug use: none Medications and Allergies Potassium Chloride [Klor-Con 10] 10 meq PO DAILY 10/19/16 [History] Pravastatin Sodium [Pravachol] 20 mg PO DAILY 10/19/16 [History] Raloxifene [Evista] 60 mg PO DAILY 10/19/16 [History] Travoprost [Travatan Z] 1 drop LEFT EYE QPM 10/19/16 [History] Aspirin [Ecotrin] 325 mg PO DAILY 03/04/17 [History] Bisacodyl [Dulcolax] 5 mg PO DAILY 03/04/17 [History] Calcium Carb,Cit/D3/Phytostrol [Citracal D + Heart Health Tab] 1 each PO DAILY 03/04/17 [History] DiphenhydraMINE [Benadryl] 25 mg PO Q4HR PRN 03/04/17 [History] Furosemide [Lasix] 20 mg PO DAILY 03/04/17 [History] Metoprolol XL (24 HR) Succ [Toprol XL] 50 mg PO DAILY 03/04/17 [History] Multivit-Min/Iron/Folic/Lutein [Centrum Silver Women Tablet] 1 each PO DAILY 05/13 [History] Timolol Maleate 0.5% [Timolol Maleate 0.5%] 1 drop LEFT EYE QAM 03/04/17 [ History] predniSONE [PredniSONE] 20 mg PO DAILY 03/04/17 [History] Allergies No Known Allergies Allergy (Verified 10/19/16 16:23) Review of Systems All systems PM: reviewed and no additional remarkable complaints except as stated All systems PM: A 10-system review of systems was performed and is negative for pertinent findings except as documented above in the HPI. General Surgery Exam Initial Vital Signs Temp Pulse Resp BP Pulse Ox 97.4 F L 108 14 120/89 100 03/04/17 08:04 03/04/17 08:04 03/04/17 08:04 03/04/17 08:04 03/04/17 08:04 - General physical appearance well developed, well nourished, no distress - Eyes PERRL, normal ocular movement - Respiratory normal expansion, normal respiratory effort, clear to auscultation - Cardiovascular Cardiovascular exam: Present: RRR, no murmurs/rubs/gallops - Abdomen Abdomen general surgery: Present: bowel sounds present, soft, non tender - Neurologic Present: CN 2-12 grossly intact - Psychiatric Psychiatric general surgery: Present: A&Ox3, oriented to person, oriented to place, oriented to time Exam Initial Vital Signs Temp Pulse Resp BP Pulse Ox 97.4 F L 108 14 120/89 100 03/04/17 08:04 03/04/17 08:04 03/04/17 08:04 03/04/17 08:04 03/04/17 08:04 Results - Labs 03/06/17 09:26 03/06/17 09:26 Abnormal lab results WBC 16.0 K/mcL (4.3-11.1) H 03/05/17 07:06 RBC 2.70 M/mcL (3.82-4.97) L 03/05/17 07:06 Hgb 7.8 g/dL (11.5-15.4) L 03/05/17 13:47 Hct 23.6 % (35.3-44.9) L 03/05/17 13:47 Neutrophils # 10.5 K/mcL (1.6-8.9) H 03/05/17 07:06 Nucleated RBCs/100 WBC 0.2 /100 WBC (0) H 03/05/17 07:06 Chloride 112 mEq/L (98-109) H 03/05/17 04:12 BUN 44 mg/dL (7-20) H 03/05/17 04:12 BUN/Creatinine Ratio 72 (6-26) H 03/05/17 04:12 POC Glucose 97 (58-89) H 03/04/17 08:14 Calculated Osmolality 305 (280-300) H 03/05/17 04:12 Calcium 7.7 mg/dL (8.6-10.8) L 03/05/17 04:12 Alkaline Phosphatase 28 Units/L (38-126) L 03/05/17 04:12 B-Natriuretic Peptide 170 pg/mL (0-100) H 03/05/17 04:12 Serum Total Protein 4.8 g/dL (6.0-8.3) L D 03/05/17 04:12 Albumin 2.5 g/dL (3.5-5.0) L D 03/05/17 04:12 Globulin 2.3 g/dL (2.4-3.5) L 03/05/17 04:12 Diabetes panel 03/05/17 Range/Units 04:12 Sodium 142 (136-145) mEq/L Potassium 3.8 (3.5-4.5) mEq/L Chloride 112 H (98-109) mEq/L Carbon Dioxide 25 (19-29) mEq/L BUN 44 H (7-20) mg/dL Creatinine 0.61 (0.57-1.11) mg/dL Glucose 95 (70-99) mg/dL Calcium 7.7 L (8.6-10.8) mg/dL AST 15 (5-34) Units/L ALT 15 (0-55) Units/L Alkaline Phosphatase 28 L (38-126) Units/L Albumin 2.5 L D (3.5-5.0) g/dL Calcium panel 03/05/17 Range/Units 04:12 Calcium 7.7 L (8.6-10.8) mg/dL Albumin 2.5 L D (3.5-5.0) g/dL Pituitary panel 03/05/17 Range/Units 04:12 Sodium 142 (136-145) mEq/L Potassium 3.8 (3.5-4.5) mEq/L Chloride 112 H (98-109) mEq/L Carbon Dioxide 25 (19-29) mEq/L BUN 44 H (7-20) mg/dL Creatinine 0.61 (0.57-1.11) mg/dL Glucose 95 (70-99) mg/dL Calcium 7.7 L (8.6-10.8) mg/dL Adrenal panel 03/05/17 Range/Units 04:12 Sodium 142 (136-145) mEq/L Potassium 3.8 (3.5-4.5) mEq/L Chloride 112 H (98-109) mEq/L Carbon Dioxide 25 (19-29) mEq/L BUN 44 H (7-20) mg/dL Creatinine 0.61 (0.57-1.11) mg/dL Glucose 95 (70-99) mg/dL Calcium 7.7 L (8.6-10.8) mg/dL Total Bilirubin 0.3 (0.2-1.2) mg/dL AST 15 (5-34) Units/L ALT 15 (0-55) Units/L Alkaline Phosphatase 28 L (38-126) Units/L Albumin 2.5 L D (3.5-5.0) g/dL All other labs normal. Consult Discharge Plan - Plan Referrals: Mike King Jr, MD [Primary Care Provider] -
[2017-03-05] MEDS: Latanoprost 2.5 ML BOTTLE LEFT EYE SCH (17:55)
[2017-03-05] MEDS ORDERED: 0.9 % Sodium Chloride 250 ML ONE ×2 (19:49→22:33)
[2017-03-06 05:45] LABS: Basophils % 0.2 %; Eosinophils # 0.2 K/mcL (0.0-0.6); Eosinophils % 1.1 %; Hematocrit 25.1 % (35.3-44.9); Hemoglobin 8.5 g/dL (11.5-15.4); Immature Granulocytes % 2.4 % (0-4); Lymphocytes # 3.6 K/mcL (0.6-4.6); Lymphocytes % 19.8 %; Mean Corpuscular HGB Conc 33.9 g/dL (31.6-35.5); Mean Corpuscular Volume 88.7 fL (83.0-100.0); Mean Platelet Volume 10.5 fL (9.4-12.4); Monocytes # 1.8 K/mcL (0.0-1.3); Nucleated Red Blood Cells 0.4 /100 WBC (0); Platelet Count 226 K/mcL (140-400); Red Blood Count 2.83 M/mcL (3.82-4.97); Red Cell Distribution Width 14.6 % (11.5-14.5); Segmented Neutrophils % 66.5 %
[2017-03-06] MEDS: predniSONE 20 MG TABLET PO SCH (07:48)
[2017-03-06] MEDS: Metoprolol XL (24 HR) Succ 50 MG TAB.ER.24H PO SCH (07:49)
--- NOTE | 2017-03-06 09:09 | Electrocardiograph Report ---
[place] [id number] Test Date: 2017-03-05 Pat Name: Haven Medina Department: 113 Room: 3B11 Gender: F Electrician Shop: PER : 1930 Requested By: Poppy Womack Order Number: [id number] Reading MD: Power Briscoe DO Measurements Intervals [place] Rate: 134 P: [place]: 0 QRS: -35 QRSD: 87 T: 65 QT: 301 QTc: 380 Interpretive Statements ATRIAL FIBRILLATION WITH RAPID VENTRICULAR RESPONSE MARKED LEFT AXIS DEVIATION Electronically Signed On 03-06-2017 9:07:17 EDT by Power Briscoe DO
[2017-03-06 09:45] LABS: Hematocrit 26.9 % (35.3-44.9)
[2017-03-06 09:58] LABS: BUN/Creatinine Ratio 46 (6-26); Calcium 8.1 mg/dL (8.6-10.8); Carbon Dioxide 26 mEq/L (19-29); Chloride 109 mEq/L (98-109); Glucose 185 mg/dL (70-99); Osmolality,Calculated 303 (280-300); Potassium 3.5 mEq/L (3.5-4.5); Sodium 141 mEq/L (136-145); eGFR For African Americans > 60 (> 60); eGFR For Non-African Americans > 60 (> 60)
[2017-03-06 10:00] LABS: Blood Urea Nitrogen 29 mg/dL (7-20)
[2017-03-06] MEDS ORDERED: Polyethylene Glycol 3350 255 GM POWDER PO ONE (10:23)
--- NOTE | 2017-03-06 10:49 | General Surgery Progress Note ---
Date of Encounter: 03/06/17 Time of Encounter: 10:47 - Assessment and Plan (1) Anemia Current Visit: Yes Status: Acute See Heme + stool. Qualifiers: Anemia type: unspecified type Qualified Code(s): D64.9 - Anemia, unspecified (2) Heme + stool Current Visit: Yes Status: Acute I was informed yesterday the patient's positive heme stool that was black in color. I discussed with the patient and I think it would be appropriate to go ahead and bowel prep her today and plan for an EGD and colonoscopy tomorrow if she is clear. Discussed with the patient and she agrees to the above plan. Of note; the patient had an iron profile study which was normal. Subjective Patient reports: other (Patient denies any abdominal pain, nausea or vomiting. Noted additional black stool, heme +.) Objective Vital Signs - Last 8 Hours Temp Pulse Resp BP Pulse Ox 03/06/17 06:54 98.4 F 94 16 108/69 97 03/06/17 03:27 97.6 F 86 16 117/79 94 Intake and Output 03/05/17 03/06/17 03/06/17 23:59 07:59 15:59 Intake Total 350 / 350 350 / 350 Output Total 200 / 200 Balance 150 / 150 350 / 350 Intake: Blood Product 350 / 350 350 / 350 Rbcs Leuko Poor As-3 2nd 350 / 350 Unit [id number] Rbcs Leuko Poor As-3 Ph 0 / 0 350 / 350 Unit [id number] Output: Urine 200 / 200 Other: Meal Breakfast Percent of Meal Consumed 100% Weight 63.775 kg Patient Weight 03/06/17 23:59 Weight 63.775 kg - General physical appearance well developed, well nourished, no distress - Abdomen Abdomen: Present: bowel sounds present, soft, non tender - Neurologic CN 2-12 grossly intact, normal coordination, normal sensation - Labs 03/06/17 09:26 03/06/17 09:26 Diabetes panel 03/06/17 Range/Units 09:26 Sodium 141 (136-145) mEq/L Potassium 3.5 (3.5-4.5) mEq/L Chloride 109 (98-109) mEq/L Carbon Dioxide 26 (19-29) mEq/L BUN 29 H D (7-20) mg/dL Creatinine 0.63 (0.57-1.11) mg/dL Glucose 185 H (70-99) mg/dL Calcium 8.1 L (8.6-10.8) mg/dL Calcium panel 03/06/17 Range/Units 09:26 Calcium 8.1 L (8.6-10.8) mg/dL Pituitary panel 03/06/17 Range/Units 09:26 Sodium 141 (136-145) mEq/L Potassium 3.5 (3.5-4.5) mEq/L Chloride 109 (98-109) mEq/L Carbon Dioxide 26 (19-29) mEq/L BUN 29 H D (7-20) mg/dL Creatinine 0.63 (0.57-1.11) mg/dL Glucose 185 H (70-99) mg/dL Calcium 8.1 L (8.6-10.8) mg/dL Adrenal panel 03/06/17 Range/Units 09:26 Sodium 141 (136-145) mEq/L Potassium 3.5 (3.5-4.5) mEq/L Chloride 109 (98-109) mEq/L Carbon Dioxide 26 (19-29) mEq/L BUN 29 H D (7-20) mg/dL Creatinine 0.63 (0.57-1.11) mg/dL Glucose 185 H (70-99) mg/dL Calcium 8.1 L (8.6-10.8) mg/dL Consult Discharge Plan - Plan Referrals: Mike King Jr, MD [Primary Care Provider] -
--- NOTE | 2017-03-06 10:52 | Internal Med Progress Note ---
Date of Encounter: 03/06/17 Time of Encounter: 08:40 - Assessment and plan (1) Atrial fibrillation with rapid ventricular response Current Visit: Yes Status: Acute Assessment and plan: Pt remains in a-fib, is rate controlled. Rate is in the 70s. Pt denies palpitations, chest pain, sob. Anticoagulation is still being held due to hgb 8.5 today after 2 units PRBCs. [facility] Hbg and labs Metroprolol 75mg po daily Cardizem 30mg po q6h (2) Anemia Current Visit: Yes Status: Acute Assessment and plan: Pt had lg, dark, tarry stool yesterday. Guaiac positive. Pt was assessed by Dr. Reeves, he will see her again today to assess for need for possible scope. 2 units PRBCs transfused last night, Hgb 8.5 this a.m. Pt states that she feels some better and color appears some better today. Iron studies, B12 and folate all WNL. Most likely blood loss anemia. Vitals have been stable and pt remains in a-fib, but it is rate controlled now. Abd is soft, rounded, non-tender to palpation and pt denies pain, cramping, or additional bowel movements. Urine was negative for blood, as was original stool occult blood. Trending H and H today q6h x 2 Surgery consult pending today Trend H and H Monitor vitals, labs, pt. Continue to hold Eliquis, ASA, and DVT prophylaxis Qualifiers: Qualified Code(s): D64.9 - Anemia, unspecified (3) Hypertension Current Visit: Yes Status: Acute Assessment and plan: well controlled. Continue to monitor vitals Continue home medications. Qualifiers: Qualified Code(s): I10 - Essential (primary) hypertension (4) Cellulitis Current Visit: Yes Status: Acute Assessment and plan: BLE appear to be better today. No redness noted, non-tender to palpation, no edema. Pt is being treated with prednisone for allergic reaction to atb for cellulitis treatment. Pt is taking 10mg po daily and has been for approximately 5-7 days. Will consider stopping in the next few days. Rash has resolved. Qualifiers: Qualified Code(s): L03.116 - Cellulitis of left lower limb (5) Leukocytosis Current Visit: Yes Status: Acute Assessment and plan: WBC 18.0 today. Pt is getting steroids for allergic reaction, will d/c in the next 1-2 days. Pt is afebrile and vitals are within normal limits. Chest xray and urine were negative, she denies new cough or dyspnea, no urinary symptoms. Continue to monitor labs and pt. Decrease prednisone to 5mg po daily Qualifiers: Qualified Code(s): D72.829 - Elevated white blood cell count, unspecified (6) DVT prophylaxis Current Visit: No Status: Suspected Assessment and plan: Held d/t anemia. VERN adler ordered and pt has been getting up. - Time Spent With Patient less than 15 minutes - Subjective Interval history: Patient seen and assessed this morning at about 8:20 AM. She is alert and oriented. She says that she feels better today. She still denies any palpitations, chest pain, abdominal pain, abdominal cramping. She denies any bowel movements or bleeding episodes since yesterday. She says that she has gotten up to go to the bedside commode and sat in the chair yesterday without any difficulty. She says she is careful to hold on to things that she goes so she does not fall. She does appear to be slightly less pale than yesterday, son says that she is still not back to baseline. Her abdomen is rounded and soft, nontender, bowel sounds are present. She is able to eat without difficulty. All her iron studies, folate, B12 labs were negative. Pending consultation today by Dr. Reeves. Bilateral lower extremities are without edema or redness. Patient states that they look and feel much better. Patient remains in A. fib on monitor, rate is controlled and she is in the 90s today. - Constitutional Vitals: Temp Pulse Resp BP Pulse Ox 98.4 F 94 16 108/69 97 03/06/17 06:54 03/06/17 06:54 03/06/17 06:54 03/06/17 06:54 03/06/17 06:54 General appearance: Present: cooperative, A&O X 3, pleasant, no acute distress, answers questions appropriately - Head Head exam: Present: normal inspection - Eye Eye exam: Present: normal appearance, conjuntiva pink. Absent: nystagmus - ENT ENT exam: Present: mucous membranes moist, normal exam, normal external ear exam - Neck Neck exam general surgery: Present: normal inspection. Absent: lymphadenopathy , tenderness - Respiratory Respiratory exam: Present: CTAB. Absent: rales, respiratory distress, rhonchi, wheezes - Cardiovascular Cardiovascular exam: Present: RRR, +S1, +S2. Absent: clicks, diastolic murmur, gallop, systolic murmur, tachycardia - GI/Abdominal GI/Abdominal exam: Present: normal bowel sounds, soft. Absent: distended, firm , hepatomegaly, tenderness - Extremities Exam Extremities exam: Present: normal inspection, warm, radial pulses palpable and symetrical. Absent: joint swelling, pedal edema, tenderness - Neurological Exam Neurological exam: Present: alert, oriented X3, no focal deficits, strengths equal and symetr throughout. Absent: facial droop, speech deficit Internal Medicine: Result - Labs CBC & Chem 7: 03/06/17 09:26 03/06/17 09:26 Labs: Short CBC 03/05/17 03/06/17 03/06/17 Range/Units 13:47 05:34 09:26 WBC 18.1 H (4.3-11.1) K/mcL Hgb 7.8 L 8.5 L 9.0 L (11.5-15.4) g/dL Hct 23.6 L 25.1 L 26.9 L (35.3-44.9) % Plt Count 226 (140-400) K/mcL Neutrophils # 12.0 H (1.6-8.9) K/mcL BMP 03/06/17 09:26 Sodium 141 Potassium 3.5 Chloride 109 Carbon Dioxide 26 BUN 29 H D Creatinine 0.63 Glucose 185 H Calcium 8.1 L Consult Discharge Plan - Plan Referrals: Mike King Jr, MD [Primary Care Provider] -
--- NOTE | 2017-03-06 12:22 | Cardiology Progress Note ---
Date of Encounter: 03/06/17 Time of Encounter: 12:00 Assessment and Plan (1) Atrial fibrillation Current Visit: Yes Status: Acute Presented with AF with RVR in the setting of LE cellulitis, leukocytosis, and GI bleed Hx of afib since December 2014; has been on Toprol XL 50 mg for rate control and ASA 325 mg daily for CVA prevention. Continue betablocker, increased on 03/04/17 to 75 mg daily. Change cardizem to LA , 120 mg to start this afternoon. 12 hour tele: avg HR-91, improved overnight. Anticipate difficulty with rate control in the setting of acute GI bleed/blood loss anemia. Kidney function, electrolytes stable. TSH normal. TTE: EF 65-70% mild MR, mild AR, mild-moderate TR, normal wall motion CHA2Ds Vasc= 4 (HTN, age, female). Ideally, recommend full anticoagulation; however patient now with acute GI bleed and unable to be started on full anticoagulation, eliquis discontinued s/p 2 units PRBC Plan for colonoscopy tomorrow by Dr. Reeves, ideally resume ASA, if H/H stable and okay with GI by discharge or in the outpatient setting. Qualifiers: Atrial fibrillation type: chronic Qualified Code(s): I48.2 - Chronic atrial fibrillation Discussion w patient/family: The assessment and plan as outlined above was discussed with the patient and/or family members who expressed understanding and agreement. All questions were answered. Thank you for involving us in the care of your patient. Please call with any questions. The patient will be discussed and reviewed with Dr. Mark; Cardiology will sign- off, please call with questions, will coordinate appt in the outpatient setting. Subjective Principal diagnosis: Afib, GI bleed Interval history: Seen and examined. Denies melena this AM--bowel prep today for colonscopy tomorrow.She has no other complaints other than generalized weakness. Discussed plan with primary service. Objective Vital Signs, Last 4 Hours Temp Pulse Resp BP Pulse Ox 03/06/17 11:42 98.1 F 97 18 104/71 95 General: Conversant, Other (pale, elderly WF) HEENT: Atraumatic, Normocephaly Cardiac: Other (irregulary irregular) Lungs: Normal Breath Sounds Neuro: Alert and responsive Abdomen: Soft Skin: No rashes noted on visualized skin Musculoskeletal: No Chest Wall Tenderness Extremities: Other (mild pre-tibial edema) Results 03/06/17 09:26 03/06/17 09:26 Lab Results 03/05/17 03/06/17 03/06/17 13:47 05:34 09:26 WBC 18.1 H Hgb 7.8 L 8.5 L Hct 23.6 L 25.1 L Plt Count 226 Sodium 141 Potassium 3.5 Chloride 109 Carbon Dioxide 26 BUN 29 H D Creatinine 0.63 Glucose 185 H Calcium 8.1 L 03/06/17 09:26 WBC Hgb 9.0 L Hct 26.9 L Plt Count Sodium Potassium Chloride Carbon Dioxide BUN Creatinine Glucose Calcium Active Medications Diltiazem HCl (Cardizem Cd) 120 mg PO DAILY [facility] Stop: 09/05/17 15:01 Latanoprost (Xalatan) 1 drop LEFT EYE QPM [facility] Stop: 09/03/17 18:01 Last Admin: 03/05/17 17:55 Dose: 1 drop Metoprolol Succinate (Toprol Xl) 75 mg PO DAILY [facility] Stop: 09/04/17 09:01 Last Admin: 03/06/17 07:49 Dose: 75 mg Naloxone HCl (Narcan) 0.4 mg IVP Q2MIN PRN PRN Reason: Opioid Reversal Stop: 09/03/17 10:57 Prednisone (Prednisone) 10 mg PO DAILY [facility] Stop: 03/07/17 11:43 Last Admin: 03/06/17 07:48 Dose: 10 mg Raloxifene HCl (Evista) 60 mg PO DAILY [facility] Stop: 09/04/17 09:01 Last Admin: 03/06/17 07:48 Dose: 60 mg Simvastatin (Zocor) 10 mg PO DAILY [facility] Stop: 09/04/17 09:01 Last Admin: 03/06/17 07:49 Dose: 10 mg Timolol Maleate (Timolol Maleate 0.5%) 1 drop LEFT EYE QAM [facility] PRN Reason: Protocol Stop: 09/04/17 09:01 Last Admin: 03/06/17 07:56 Dose: 1 drop - Imaging and Cardiology Echo: report reviewed - EKG Interpretation EKG results cardiology: personally reviewed Consult Discharge Plan - Plan Referrals: Mike King Jr, MD [Primary Care Provider] -
[2017-03-06] MEDS: Diltiazem CD (24hr) 120 MG CAPSULE PO SCH (16:17)
[2017-03-06] MEDS: Latanoprost 2.5 ML BOTTLE LEFT EYE SCH (16:21)
[2017-03-06 16:43] LABS: Hematocrit 26.9 % (35.3-44.9); Hemoglobin 9.1 g/dL (11.5-15.4)
[2017-03-07] MEDS ORDERED: *HR* Midazolam HCl 5 MG/5 ML VIAL IVP ONE (09:27)
[2017-03-07] MEDS ORDERED: *HR* FentaNYL (PF) 100 MCG/2 ML VIAL ONE (09:27)
[2017-03-07] MEDS ORDERED: Tetracaine/Benzocaine/Butamben 200MG/SPRAY (100SPY/BOT) MM ONE (09:44)
[2017-03-07] MEDS ORDERED: Simethicone 40 MG/0.6 ML MLS IR ONE (09:44)
[2017-03-07] MEDS ORDERED: *HR* Promethazine 25 MG/ML VIAL IVP ONE ×2 (09:44→10:00)
[2017-03-07] MEDS ORDERED: 0.9 % Sodium Chloride 1,000 ML IVC SCH (09:45)
--- NOTE | 2017-03-07 09:45 | Pre-Sedation Evaluation ---
Pre-sedation evaluation - Pre-sedation checklist Date of procedure: 03/07/17 Procedure: EGD/Colonoscopy Recent Vitals: Last Vital Signs Temp 97.5 F L 03/07/17 09:35 Pulse 93 03/07/17 09:37 Resp 18 03/07/17 09:37 BP 150/90 03/07/17 09:37 Pulse Ox 96 03/07/17 09:37 H&P (including ROS) documented in medical record: Yes Previous reaction to sedatives/anesthetics: No Dietary Status: NPO after Midnight Airway Assessment: Patient can open mouth completely, TMJ function normal Dentition: No loose teeth or bridges Possible difficult airway: No ASA Classification *see protocol: CLASS III-Severe systemic disease Plan of Care: Pt appropriate candidate for procedure/moderate/conscious sedation
[2017-03-07] MEDS: *HR* FentaNYL (PF) 100 MCG/2 ML VIAL IVP PRN ×2 (09:47→09:49)
[2017-03-07] MEDS: *HR* Midazolam HCl 5 MG/5 ML VIAL IVP PRN ×2 (09:48→09:49)
--- NOTE | 2017-03-07 10:19 | Event Note ---
Date of Encounter: 03/07/17 Time of Encounter: 10:18 EGD and colonoscopy completed. Showed evidence of pre-pyloric ulcers-no active bleeding. Colonoscopy showed old tarry stool up to the level of the TI. Recommend continued PPI. Await path results. Patient will need to be discharged on PPI therapy for at least 4-6 months. Will advance diet and she can follow up with me as an outpatient. Thank you.
--- NOTE | 2017-03-07 11:49 | Internal Med Progress Note ---
Date of Encounter: 03/07/17 Time of Encounter: 09:20 - Assessment and plan (1) Atrial fibrillation with rapid ventricular response Current Visit: Yes Status: Acute Assessment and plan: Rate remains irregular, but his rate control. She has been switched over to Cardizem CD 120 mg, and she is still taking metoprolol 75 mg by mouth daily. Vitals are within normal limits. Continue telemetry. Patient denies pain or palpitations or shortness of breath. (2) Anemia Current Visit: Yes Status: Acute Assessment and plan: Hemoglobin is 9.1. I am repeating labs after EGD and colonoscopy. EGD showed evidence of prepyloric ulcers with no active bleeding and there was old Nam stool through colon. Patient will be sent home on PPI for 4-6 months. She will need to follow-up with Dr. Reeves outpatient. Continue to monitor labs. Qualifiers: Anemia type: unspecified type Qualified Code(s): D64.9 - Anemia, unspecified (3) Hypertension Current Visit: Yes Status: Acute Assessment and plan: Chronic. Well controlled. Continue home medications. Patient is also on metoprolol 75 mg by mouth daily and Cardizem CD 120 mg daily Qualifiers: Hypertension type: essential hypertension Qualified Code(s): I10 - Essential (primary) hypertension (4) Cellulitis Current Visit: Yes Status: Resolved Assessment and plan: Cellulitis has resolved. Patient was taking prednisone for allergic reaction to medication. She has no rash, itching, redness. Will stop prednisone. Qualifiers: Site of cellulitis of extremity: lower extremity Laterality: left Qualified Code(s): L03.116 - Cellulitis of left lower limb (5) Leukocytosis Current Visit: Yes Status: Acute Assessment and plan: Pt is getting steroids for allergic reaction, stopped today.. Pt is afebrile and vitals are within normal limits. Chest xray and urine were negative, she denies new cough or dyspnea, no urinary symptoms. Continue to monitor labs and pt. Qualifiers: Leukocytosis type: unspecified Qualified Code(s): D72.829 - Elevated white blood cell count, unspecified (6) DVT prophylaxis Current Visit: No Status: Suspected Assessment and plan: Held d/t anemia. VERN adler ordered and pt has been getting up. - Time Spent With Patient less than 15 minutes - Subjective Interval history: Patient was seen and assessed this morning at about 9:20 AM. Her son was at bedside. She is alert and oriented, skin is pink, warm, and dry. Respirations are unlabored. I initially saw patient this morning she was waiting to go for her scope. She still denies abdominal pain, nausea, vomiting. Patient completed a bowel prep, hemoglobin remained stable overnight. I saw patient again when she returned from scope. She still denies abdominal pain, nausea, vomiting, cramping. She had an EGD and colonoscopy completed. There was evidence of prepyloric ulcers with no active bleeding. Colonoscopy showed all tarry stool throughout colon. She will be sent home on a PPI for at least 4-6 months. She will follow-up with Dr. Reeves outpatient. She is agreeable to spending the night again to ensure that hemoglobin is stable and that she is not dizzy and weak when she gets up. Patient does have slightly irregular rhythm with a murmur, denies chest pain or loss of breath. - Constitutional Vitals: Temp Pulse Resp BP Pulse Ox 97.7 F 96 14 98/55 100 03/07/17 11:35 03/07/17 11:35 03/07/17 11:35 03/07/17 11:35 03/07/17 10:51 General appearance: Present: cooperative, A&O X 3, pleasant, no acute distress, answers questions appropriately - Head Head exam: Present: normal inspection - Eye Eye exam: Present: normal appearance, conjuntiva pink - ENT ENT exam: Present: mucous membranes moist, normal exam, normal external ear exam - Neck Neck exam general surgery: Present: normal inspection. Absent: lymphadenopathy , tenderness - Respiratory Respiratory exam: Present: CTAB. Absent: chest wall tenderness, rales, respiratory distress, rhonchi, stridor, wheezes - Cardiovascular Cardiovascular exam: Present: diastolic murmur, RRR, +S1, +S2, systolic murmur. Absent: clicks, gallop - Expanded Cardiovascular Exam Location: Present: LUSB Intensity: 2/6 Peripheral pulses: 1+: Dorsalis Pedis (L) PM, Dorsalis Pedis (R) PM - GI/Abdominal GI/Abdominal exam: Present: hernia, normal bowel sounds, soft. Absent: distended, hepatomegaly, tenderness - Extremities Exam Extremities exam: Present: normal capillary refill, pedal edema, warm, radial pulses palpable and symetrical. Absent: tenderness - Neurological Exam Neurological exam: Present: alert, oriented X3, no focal deficits, strengths equal and symetr throughout - Skin Skin exam: Present: dry, normal color, warm. Absent: rash Internal Medicine: Result - Labs CBC & Chem 7: 03/06/17 16:30 03/06/17 09:26 Labs: Short CBC 03/06/17 Range/Units 16:30 Hgb 9.1 L (11.5-15.4) g/dL Hct 26.9 L (35.3-44.9) % Consult Discharge Plan - Plan Referrals: Mike King Jr, MD [Primary Care Provider] -
[2017-03-07 13:35] LABS: Hematocrit 27.8 % (35.3-44.9); Hemoglobin 8.9 g/dL (11.5-15.4)
[2017-03-07] MEDS: predniSONE 20 MG TABLET PO SCH (13:53)
[2017-03-07] MEDS: Diltiazem CD (24hr) 120 MG CAPSULE PO SCH (13:55)
[2017-03-07] MEDS: Metoprolol XL (24 HR) Succ 50 MG TAB.ER.24H PO SCH (13:57)
[2017-03-07] MEDS: Latanoprost 2.5 ML BOTTLE LEFT EYE SCH (17:42)
[2017-03-08 03:46] LABS: Basophils % 0.1 %; Eosinophils # 0.5 K/mcL (0.0-0.6); Eosinophils % 2.8 %; Hematocrit 24.3 % (35.3-44.9); Hemoglobin 7.9 g/dL (11.5-15.4); Immature Granulocytes % 1.5 % (0-4); Lymphocytes # 2.2 K/mcL (0.6-4.6); Lymphocytes % 13.1 %; Mean Corpuscular HGB Conc 32.5 g/dL (31.6-35.5); Mean Corpuscular Hemoglobin 29.9 pg (28.0-33.3); Mean Platelet Volume 10.4 fL (9.4-12.4); Monocytes # 1.3 K/mcL (0.0-1.3); Monocytes % 7.8 %; Neutrophils # 12.8 K/mcL (1.6-8.9); Nucleated Red Blood Cells 0.1 /100 WBC (0); Platelet Count 261 K/mcL (140-400); Red Blood Count 2.64 M/mcL (3.82-4.97); Red Cell Distribution Width 15.7 % (11.5-14.5); Segmented Neutrophils % 74.7 %
[2017-03-08 04:02] LABS: BUN/Creatinine Ratio 23 (6-26); Carbon Dioxide 26 mEq/L (19-29); Chloride 105 mEq/L (98-109); Glucose 90 mg/dL (70-99); Osmolality,Calculated 282 (280-300); Potassium 3.6 mEq/L (3.5-4.5); Sodium 136 mEq/L (136-145); eGFR For African Americans > 60 (> 60); eGFR For Non-African Americans > 60 (> 60)
[2017-03-08 04:03] LABS: Blood Urea Nitrogen 15 mg/dL (7-20)
[2017-03-08] MEDS: Pantoprazole 40 MG VIAL IVP SCH (07:59)
[2017-03-08] MEDS: Metoprolol XL (24 HR) Succ 50 MG TAB.ER.24H PO SCH (08:00)
[2017-03-08] MEDS: Diltiazem CD (24hr) 120 MG CAPSULE PO SCH (08:00)
[2017-03-08 11:36] LABS: Hematocrit 24.8 % (35.3-44.9); Hemoglobin 8.1 g/dL (11.5-15.4)
[2017-03-08] MEDS ORDERED: 0.9 % Sodium Chloride 250 ML ONE (16:00)
[2017-03-08] MEDS: Latanoprost 2.5 ML BOTTLE LEFT EYE SCH (16:32)
--- NOTE | 2017-03-08 17:23 | Internal Med Progress Note ---
Date of Encounter: 03/08/17 Time of Encounter: 08:30 - Assessment and plan (1) Atrial fibrillation with rapid ventricular response Current Visit: Yes Status: Acute Assessment and plan: Rate remains irregular, but his rate controlled after medications this morning. Patient had been tachycardic, rate in the 120s prior to medication.. She has been switched over to Cardizem CD 120 mg, and she is still taking metoprolol 75 mg by mouth daily. Vitals are within normal limits. Continue telemetry. Patient denies pain or palpitations or shortness of breath. Transfusing another unit of blood, hemoglobin was 8.1. Will reassess in the morning. Reassess hemoglobin Continue Cardizem and metoprolol Continue telemetry (2) Anemia Current Visit: Yes Status: Acute Assessment and plan: Hemoglobin fell to 10.9. Recheck of value was 8.1. We are transfusing another unit of PRBCs. We will check another H and H after transfusion. Recheck labs in the morning. Qualifiers: Anemia type: unspecified type Qualified Code(s): D64.9 - Anemia, unspecified (3) Hypertension Current Visit: Yes Status: Acute Assessment and plan: Chronic. Well controlled. Continue home medications. Patient is also on metoprolol 75 mg by mouth daily and Cardizem CD 120 mg daily Qualifiers: Hypertension type: essential hypertension Qualified Code(s): I10 - Essential (primary) hypertension (4) Cellulitis Current Visit: Yes Status: Resolved Assessment and plan: Resolved. Antibiotic has been stopped. Prednisone has been stopped as well. Qualifiers: Site of cellulitis of extremity: lower extremity Laterality: left Qualified Code(s): L03.116 - Cellulitis of left lower limb (5) Leukocytosis Current Visit: Yes Status: Acute Assessment and plan: Most likely due to prednisone. Prednisone was stopped yesterday, value is trending down. Qualifiers: Leukocytosis type: unspecified Qualified Code(s): D72.829 - Elevated white blood cell count, unspecified (6) DVT prophylaxis Current Visit: No Status: Suspected Assessment and plan: Held d/t anemia. VERN adler ordered and pt has been getting up. Patient had been on Xarelto for A. fib, will need to reassess on discharge when patient should restart, if patient should restart. - Subjective Interval history: Pt seen and assessed at about 0830 this a.m. Pt denies abd pain, diarrhea, cramping. Pt is aware that her hgb fell again and will be getting another unit of blood. Pt is alert and oriented. Cellulitis BLE has resolved. Steroids have been stopped and leukocytosis is trending down. Patient appeared to be A. fib RVR again this morning when I assessed her. She still denied palpitations or chest pain or shortness of breath. I checked the monitor she was A. fib, rate in the 120s. Patient was given her vacations at about 8 AM. I checked the monitor and patient again at about 10:30, she remained A. fib however the rate was controlled at about 80s. Also transfusing more PRBCs will be helpful with this as well. - Constitutional Vitals: Temp Pulse Resp BP Pulse Ox 98.1 F 99 16 122/75 95 03/08/17 17:02 03/08/17 16:37 03/08/17 16:37 03/08/17 16:37 03/08/17 16:37 General appearance: Present: cooperative, A&O X 3, pleasant, no acute distress, answers questions appropriately - Head Head exam: Present: normal inspection - Eye Eye exam: Present: normal appearance, conjuntiva pink - ENT ENT exam: Present: mucous membranes moist, normal exam - Neck Neck exam general surgery: Absent: lymphadenopathy, tenderness - Respiratory Respiratory exam: Present: CTAB. Absent: rales, respiratory distress, rhonchi, stridor, wheezes - Cardiovascular Cardiovascular exam: Present: irregular rhythm, tachycardia - GI/Abdominal GI/Abdominal exam: Present: normal bowel sounds, soft. Absent: distended, hepatomegaly, mass, tenderness - Extremities Exam Extremities exam: Present: normal capillary refill, normal inspection, warm, radial pulses palpable and symetrical. Absent: tenderness - Neurological Exam Neurological exam: Present: alert, oriented X3, no focal deficits, strengths equal and symetr throughout. Absent: facial droop, speech deficit Internal Medicine: Result - Labs CBC & Chem 7: 03/08/17 11:06 03/08/17 03:08 Labs: Short CBC 03/08/17 Range/Units 11:06 Hgb 8.1 L (11.5-15.4) g/dL Hct 24.8 L (35.3-44.9) % Consult Discharge Plan - Plan Referrals: Mike King Jr, MD [Primary Care Provider] - 03/12/17 1:25 pm
[2017-03-08 20:30] LABS: Hematocrit 25.8 % (35.3-44.9); Hemoglobin 8.9 g/dL (11.5-15.4)
[2017-03-09 06:49] VITALS: BP 122/73
[2017-03-09] MEDS: Metoprolol XL (24 HR) Succ 50 MG TAB.ER.24H PO SCH (07:46)
[2017-03-09] MEDS: Diltiazem CD (24hr) 120 MG CAPSULE PO SCH (07:46)
[2017-03-09] MEDS: Pantoprazole 40 MG VIAL IVP SCH (07:48)
[2017-03-09 08:19] LABS: Basophils % 0.1 %; Eosinophils # 0.5 K/mcL (0.0-0.6); Eosinophils % 3.7 %; Hematocrit 27.3 % (35.3-44.9); Hemoglobin 9.1 g/dL (11.5-15.4); Immature Granulocytes % 1.1 % (0-4); Lymphocytes # 1.4 K/mcL (0.6-4.6); Lymphocytes % 10.4 %; Mean Corpuscular HGB Conc 33.3 g/dL (31.6-35.5); Mean Corpuscular Volume 90.1 fL (83.0-100.0); Monocytes # 1.3 K/mcL (0.0-1.3); Monocytes % 9.1 %; Neutrophils # 10.4 K/mcL (1.6-8.9); Platelet Count 241 K/mcL (140-400); Red Blood Count 3.03 M/mcL (3.82-4.97); Red Cell Distribution Width 16.2 % (11.5-14.5); Segmented Neutrophils % 75.6 %
[2017-03-09 08:35] LABS: BUN/Creatinine Ratio 15 (6-26); Blood Urea Nitrogen 9 mg/dL (7-20); Calcium 8.4 mg/dL (8.6-10.8); Carbon Dioxide 27 mEq/L (19-29); Chloride 103 mEq/L (98-109); Glucose 91 mg/dL (70-99); Magnesium 1.7 mg/dL (1.6-2.6); Osmolality,Calculated 280 (280-300); Potassium 4.1 mEq/L (3.5-4.5); Sodium 136 mEq/L (136-145); eGFR For African Americans > 60 (> 60); eGFR For Non-African Americans > 60 (> 60)
--- NOTE | 2017-03-09 08:53 | Discharge Summary ---
Date of Encounter: 03/09/17 Time of Encounter: 08:00 - Discharge Diagnosis (1) Atrial fibrillation with rapid ventricular response Priority: Primary Status: Acute Comments: hx paroxysmal atrial fibrillation, on ASA. EKG with a-fib RVR, HRs 120s on arrival. Hemodynamically stable. Toprol increased to 75 and started on cardizem. echocardiogram showed LVEF 70%. follow up in the cardiology clinic in 1-2 weeks. (2) Acute GI bleeding Priority: Primary Status: Acute Comments: resolved. likely secondary to PUD. 03/05/17: pt developed tarry stools with guaiac positive. EGD on 03/07 showed two non-bleeding cratered gastric ulcers with no stigmata of bleeding were found in the gastric antrum. biopsies taken. patchy mild erythematous mucosa without active bleeding and with no stigmata of bleeding in the duodenal bulb. Colonoscopy on 03/07 was unremarkable. PPI BID. follow up biopsies result. (3) Acute blood loss anemia Priority: Primary Status: Acute Comments: secondary to GI bleed. Hgb dropped to 7.6 on 03/05. Transfused a total of 3 units PRBC. Hgb today is 9.1. she is hemodynamically stable. (4) Gastric ulcer Priority: Primary Status: Acute Comments: EGD on 03/07 showed two non-bleeding cratered gastric ulcers with no stigmata of bleeding were found in the gastric antrum. biopsies taken. patchy mild erythematous mucosa without active bleeding and with no stigmata of bleeding in the duodenal bulb. PPI BID. Qualifiers: Gastric ulcer chronicity: acute Gastric ulcer complication status: without hemorrhage or perforation Qualified Code(s): K25.3 - Acute gastric ulcer without hemorrhage or perforation (5) Leukocytosis Priority: Secondary Status: Chronic Comments: trending down. likely secondary to prednisone use who she takes for allergic reaction to keflex (pt developed blisters and progressive erythema on legs after taking keflex). Qualifiers: Leukocytosis type: leukemoid reaction Qualified Code(s): D72.823 - Leukemoid reaction (6) Hypertension Priority: Primary Status: Chronic Comments: bp adequate. Qualifiers: Hypertension type: essential hypertension Qualified Code(s): I10 - Essential (primary) hypertension - Discharge Medications Prescriptions: Diltiazem CD (24hr) [Cardizem CD] 120 mg PO DAILY #30 cap.er.24h Metoprolol XL (24 HR) Succ [Toprol Xl] 75 mg PO DAILY #30 tab.er.24h Pantoprazole Sodium 40 mg PO BID #70 tablet. Home Medications: Pravastatin Sodium [Pravachol] 20 mg PO DAILY 10/19/16 [History] Raloxifene [Evista] 60 mg PO DAILY 10/19/16 [History] Travoprost [Travatan Z] 1 drop LEFT EYE QPM 10/19/16 [History] Aspirin [Ecotrin] 325 mg PO DAILY 03/04/17 [History] Calcium Carb,Cit/D3/Phytostrol [Citracal D + Heart Health Tab] 1 each PO DAILY 03/04/17 [History] DiphenhydraMINE [Benadryl] 25 mg PO Q4HR PRN 03/04/17 [History] Multivit-Min/Iron/Folic/Lutein [Centrum Silver Women Tablet] 1 each PO DAILY 05/13 [History] Timolol Maleate 0.5% 1 drop LEFT EYE QAM 03/04/17 [History] Bisacodyl [Dulcolax] 5 mg PO DAILY PRN #0 03/09/17 [Rx] Diltiazem CD (24hr) [Cardizem CD] 120 mg PO DAILY #30 cap.er.24h 03/09/17 [Rx] Metoprolol XL (24 HR) Succ [Toprol Xl] 75 mg PO DAILY #30 tab.er.24h 03/09/17 [ Rx] Pantoprazole Sodium 40 mg PO BID #70 tablet. 03/09/17 [Rx] Allergies/Adverse Reactions: Allergies No Known Allergies Allergy (Verified 10/19/16 16:23) Date of admission: 03/08/17 08:01 Primary care physician: Mike King Jr, MD - Patient Status Disposition: Home, Self-Care Condition: Good Functional capacity at discharge: independent ambulation Overall status at discharge: patient is progressing back to baseline - Discharge Instructions Instructions: Metoprolol (By mouth), Diltiazem (By mouth), Pantoprazole (By mouth), Atrial Fibrillation (DC), Gastrointestinal Bleeding (DC), Anemia (DC) Follow Up With: Mike King Jr, MD [Primary Care Provider] - 03/12/17 1:25 pm Additional Instructions: check your blood pressure and heart rate twice daily, same time in the morning and evening. write down numbers and bring record to doctor's appointment. Have a blood test this coming Wednesday03/12/17. - Diet and Activity Activity: resume usual activities as tolerated Diet: low fat, low cholesterol Interval History: Patient reports productive cough of yellowish sputum for the past 2 days but it is getting better. no other UR symptoms. chest x-ray was negative for any acute process. Hospital course: Ms. Medina is a 87 year old female with past medical history of hypertension, paroxysmal atrial fibrillation on aspirin, hyperlipidemia and recent allergic reaction to Keflex for which she is on prednisone (started on Keflex for leg cellulitis and developed blisters and erythema). she presented with generalized weakness and was diagnosed of atrial fibrillation with rapid ventricular response. EKG with a-fib RVR, HRs 120s on arrival. Her home dose of Toprol was increased to 75 mg daily and she was started on oral Cardizem with adequate control of her heart rate. CHADs-VASC score of 4. Echocardiogram showed LVEF 70%. Follow up in the cardiology clinic in 1-2 weeks. Hospital course was complicated by acute blood loss anemia due to GI bleed ( melena during this hospitalization). She underwent EGD on 03/07 showing two non- bleeding cratered gastric ulcers with no stigmata of bleeding were found in the gastric antrum, biopsies taken, patchy mild erythematous mucosa without active bleeding and with no stigmata of bleeding in the duodenal bulb. Colonoscopy on was unremarkable. She was transfused 3 units of packed red blood cells and hemoglobin was 9.1 at discharge. She was discharged on PPI twice a day. Patient completed prednisone inpatient. plan: Ppi twice a day. Check CBC in 1 week. Follow-up with primary care physician within one week. - Time Spent with Patient Total time spent providing and/or coordinating discharge services: - Constitutional Vitals: Temp Pulse Resp BP Pulse Ox 98.3 F 99 15 122/73 94 03/09/17 06:42 03/09/17 06:42 03/09/17 06:42 03/09/17 06:42 03/09/17 06:42 General appearance: Present: cooperative, A&O X 3, pleasant, no acute distress, answers questions appropriately - Eye Eye exam: Present: PERRL, sclera anicteric - Neck Neck exam general surgery: Present: supple, trachea midline. Absent: lymphadenopathy - Respiratory Respiratory exam: Present: CTAB - Cardiovascular Cardiovascular exam: Present: irregular rhythm - GI/Abdominal GI/Abdominal exam: Present: normal bowel sounds, soft. Absent: distended, tenderness - Extremities Exam Extremities exam: Absent: pedal edema - Back Exam Back exam: Absent: CVA tenderness (L), CVA tenderness (R) - Neurological Exam Neurological exam: Present: alert, oriented X3, no focal deficits, strengths equal and symetr throughout. Absent: facial droop, speech deficit - Skin Skin exam: Absent: intact
== END 2017-03-09 10:50 | disposition home or self-care (01) | DRG 309 ==
LOC: EMEROO 07:57 → 3BNU 07:57 → SUATTDRO 03-08 08:01
PROVIDERS: ADMIT Registered Nurse; ATTEND Internal Medicine
PROC: ENDOEBX (2017-03-07 09:00)

== ENCOUNTER 2020-12-15 03:25 | Inpatient (IN) ==
[2020-12-15] MEDS ORDERED: 0.9 % Sodium Chloride 1,000 ML IVC ONE (03:46)
[2020-12-15 04:08] LABS: Basophils # 0.1 K/mcL (0.0-0.2); Basophils % 0.5 %; Eosinophils # 0.2 K/mcL (0.0-0.6); Eosinophils % 1.4 %; Hematocrit 40.3 % (35.3-44.9); Hemoglobin 13.2 g/dL (11.5-15.4); Immature Granulocytes % 0.3 % (0-4); Lymphocytes % 19.2 %; Mean Corpuscular HGB Conc 32.8 g/dL (31.6-35.5); Mean Corpuscular Hemoglobin 29.5 pg (28.0-33.3); Mean Corpuscular Volume 90.2 fL (83.0-100.0); Mean Platelet Volume 10.8 fL (9.4-12.4); Monocytes # 0.8 K/mcL (0.0-1.3); Monocytes % 7.8 %; Neutrophils # 7.5 K/mcL (1.6-8.9); Platelet Count 302 K/mcL (140-400); Red Blood Count 4.47 M/mcL (3.82-4.97); Red Cell Distribution Width 15.2 % (11.5-14.5); Segmented Neutrophils % 70.8 %; White Blood Count 10.6 K/mcL (4.3-11.1)
[2020-12-15 04:35] LABS: BUN/Creatinine Ratio 32 (6-26); Blood Urea Nitrogen 21 mg/dL (8-23); Calcium 9.1 mg/dL (8.6-10.3); Carbon Dioxide 28 mEq/L (23-29); Chloride 104 mEq/L (98-107); Glucose 108 mg/dL (70-105); Osmolality,Calculated 294 (280-300); Potassium 3.6 mEq/L (3.5-5.1); Sodium 140 mEq/L (136-145); Troponin I 2.79 ng/mL (< 0.04); eGFR For African Americans > 60 (> 60); eGFR For Non-African Americans > 60 (> 60)
[2020-12-15] MEDS ORDERED: Ondansetron 4 MG/2 ML VIAL IVP PRN (04:53)
[2020-12-15] MEDS ORDERED: Naloxone 0.4 MG/ML INJ IVP PRN (04:53)
[2020-12-15] MEDS ORDERED: Morphine Sulfate 2 MG/ML SYRINGE IVP PRN (04:56)
[2020-12-15] MEDS ORDERED: Nitroglycerin 0.4 MG TAB.SUBL SL PRN (04:56)
[2020-12-15] MEDS ORDERED: *HR* Heparin 5,000 UNIT/ML VIAL IVP PRN ×2 (04:58)
[2020-12-15] MEDS ORDERED: *HR* Heparin 5,000 UNIT/ML VIAL IVP ONE (04:58)
[2020-12-15] MEDS ORDERED: Heparin 25,000UNIT/250ML 1/2NS 25,000 UNIT/250 ML IV.SOLN IVC SCH (05:00)
[2020-12-15] MEDS ORDERED: Perflutren Lipid Microsphere 1.3 ML in 0.9 % Sodium Chloride 8.7 ML IVP PRN ×3 (05:07→10:56)
[2020-12-15 06:15] LABS: Hematocrit 41.9 % (35.3-44.9); Hemoglobin 13.4 g/dL (11.5-15.4); Mean Corpuscular Hemoglobin 28.8 pg (28.0-33.3); Mean Corpuscular Volume 90.1 fL (83.0-100.0); Mean Platelet Volume 10.2 fL (9.4-12.4); Platelet Count 304 K/mcL (140-400); Red Blood Count 4.65 M/mcL (3.82-4.97); Red Cell Distribution Width 15.2 % (11.5-14.5); White Blood Count 11.1 K/mcL (4.3-11.1)
[2020-12-15 06:23] LABS: INR 1.2; Prothrombin Time 13.8 Seconds (9.4-12.1)
[2020-12-15 06:26] LABS: Activated Partial Thrombo Time 28.4 Seconds (26.0-36.0)
[2020-12-15 06:35] LABS: Chol/HDL Ratio 3.4 (0-4.9); Magnesium 1.8 mg/dL (1.6-2.6)
[2020-12-15] MEDS: Aspirin 81 MG TAB.CHEW PO SCH (07:48)
[2020-12-15] MEDS: Metoprolol XL (24 HR) Succ 50 MG TAB.ER.24H PO SCH (07:48)
[2020-12-15] MEDS: lisinopriL 10 MG TABLET PO SCH (07:52)
[2020-12-15] MEDS ORDERED: DilTIAZem CD (24hr) 120 MG CAP.ER.24H PO SCH (09:00)
[2020-12-15] MEDS ORDERED: Furosemide 20 MG/2 ML VIAL IVP ONE (13:24)
[2020-12-15] MEDS ORDERED: DilTIAZem 50 MG in 0.9 % Sodium Chloride 40 ML IVC SCH (13:30)
[2020-12-15 14:11] LABS: Bacteria,Urine Few per hpf (None-Few); Bilirubin,Urine Negative (Negative); Blood,Urine Moderate (Negative); Clarity,Urine Turbid (Clear); Color,Urine Yellow (Yellow); Glucose,Urine (UA) Normal (Normal); Ketones,Urine 20 mg/dL (Negative); Leukocyte Esterase,Urine Small (Negative); Mucus,Urine Few per lpf (None-Few); Nitrite,Urine Positive (Negative); PH,Urine 5.5 pH Units (5.0-8.0); Protein,Urine 30 mg/dL (Neg-Trace); RBC,Urine 30-50 per hpf (0-3); Specific Gravity,Urine 1.025 (1.010-1.025); Squamous Epithelial Cell,Urine Few per hpf (None-Few); Urobilinogen,Urine Normal (Normal); WBC,Urine 30-50 per hpf (0-3)
[2020-12-15] MEDS ORDERED: *HR* FentaNYL (PF) 100 MCG/2 ML VIAL IVP ONE (16:13)
[2020-12-15] MEDS ORDERED: DilTIAZem 50 MG/50 ML IV.SOLN IVC SCH (17:00)
[2020-12-15] MEDS: Latanoprost 2.5 ML BOTTLE LEFT EYE SCH (23:46)
[2020-12-16 03:00] LABS: INR 1.6
[2020-12-16 03:14] LABS: BUN/Creatinine Ratio 36 (6-26); Blood Urea Nitrogen 20 mg/dL (8-23); Calcium 8.5 mg/dL (8.6-10.3); Carbon Dioxide 27 mEq/L (23-29); Chloride 106 mEq/L (98-107); Glucose 127 mg/dL (70-105); Magnesium 1.6 mg/dL (1.6-2.6); Osmolality,Calculated 296 (280-300); Potassium 2.9 mEq/L (3.5-5.1); Sodium 141 mEq/L (136-145); eGFR For African Americans > 60 (> 60); eGFR For Non-African Americans > 60 (> 60)
[2020-12-16] MEDS ORDERED: Potassium Chloride 40 MEQ, Lidocaine 1% 2 ML in 0.9 % Sodium Chloride 500 ML IVPB ONE (03:56)
[2020-12-16] MEDS: lisinopriL 10 MG TABLET PO SCH (08:50)
[2020-12-16] MEDS: Aspirin 81 MG TAB.CHEW PO SCH (08:50)
[2020-12-16] MEDS: Metoprolol XL (24 HR) Succ 50 MG TAB.ER.24H PO SCH (08:51)
[2020-12-16 10:47] LABS: Basophils % 0.2 %; Eosinophils % 0.1 %; Immature Granulocytes % 0.8 % (0-4); Lymphocytes % 9.5 %; Mean Corpuscular HGB Conc 32.9 g/dL (31.6-35.5); Mean Corpuscular Hemoglobin 28.8 pg (28.0-33.3); Mean Corpuscular Volume 87.7 fL (83.0-100.0); Mean Platelet Volume 11.1 fL (9.4-12.4); Monocytes # 2.4 K/mcL (0.0-1.3); Monocytes % 12.3 %; Platelet Count 287 K/mcL (140-400); Red Blood Count 3.99 M/mcL (3.82-4.97); Red Cell Distribution Width 15.3 % (11.5-14.5); Segmented Neutrophils % 77.1 %
[2020-12-16 10:52] LABS: Hemoglobin 11.5 g/dL (11.5-15.4); Lymphocytes # 1.8 K/mcL (0.6-4.6); White Blood Count 19.4 K/mcL (4.3-11.1)
[2020-12-16] MEDS ORDERED: Furosemide 20 MG/2 ML VIAL IVP ONE ×2 (14:00→22:48)
[2020-12-16] MEDS ORDERED: 0.9 % Sodium Chloride 2,000 ML ONE (14:37)
[2020-12-16] MEDS ORDERED: *HR* Heparin 10,000 UNIT/10 ML VIAL ONE (14:38)
[2020-12-16] MEDS ORDERED: Nitroglycerin 1,000 MCG/5 ML VIAL IV ONE (14:38)
[2020-12-16] MEDS ORDERED: ISOVUE-370 200 ML INFUS..BTL ONE (14:38)
[2020-12-16] MEDS ORDERED: Heparin 1,000 UNITS/500 mL 500 ML ONE (14:38)
[2020-12-16] MEDS ORDERED: *HR* Midazolam HCl 2 MG/2 ML VIAL ONE (14:49)
[2020-12-16] MEDS ORDERED: *HR* FentaNYL (PF) 100 MCG/2 ML VIAL ONE (14:49)
[2020-12-16 15:08] LABS: Hemoglobin 11.8 g/dL (11.5-15.4)
[2020-12-16] MEDS: Latanoprost 2.5 ML BOTTLE LEFT EYE SCH (21:44)
[2020-12-16] MEDS ORDERED: Sulfamethoxazole/Trimeth DS 1 EACH TABLET PO SCH (23:00)
[2020-12-17 03:36] LABS: Basophils % 0.2 %; Eosinophils % 0.1 %; Hemoglobin 12.1 g/dL (11.5-15.4); Immature Granulocytes % 0.6 % (0-4); Lymphocytes # 1.6 K/mcL (0.6-4.6); Lymphocytes % 10.3 %; Mean Corpuscular HGB Conc 32.7 g/dL (31.6-35.5); Mean Corpuscular Hemoglobin 29.4 pg (28.0-33.3); Mean Corpuscular Volume 89.8 fL (83.0-100.0); Monocytes # 1.7 K/mcL (0.0-1.3); Monocytes % 11.2 %; Neutrophils # 12.1 K/mcL (1.6-8.9); Platelet Count 269 K/mcL (140-400); Red Blood Count 4.12 M/mcL (3.82-4.97); Red Cell Distribution Width 15.5 % (11.5-14.5); Segmented Neutrophils % 77.6 %; White Blood Count 15.5 K/mcL (4.3-11.1)
[2020-12-17 03:56] LABS: BUN/Creatinine Ratio 38 (6-26); Blood Urea Nitrogen 21 mg/dL (8-23); Calcium 8.5 mg/dL (8.6-10.3); Carbon Dioxide 27 mEq/L (23-29); Chloride 106 mEq/L (98-107); Glucose 100 mg/dL (70-105); Magnesium 2.1 mg/dL (1.6-2.6); Osmolality,Calculated 293 (280-300); Potassium 3.9 mEq/L (3.5-5.1); Sodium 140 mEq/L (136-145); eGFR For African Americans > 60 (> 60); eGFR For Non-African Americans > 60 (> 60)
[2020-12-17] MEDS: lisinopriL 5 MG TABLET PO SCH (07:49)
[2020-12-17] MEDS: Aspirin 81 MG TAB.CHEW PO SCH (07:49)
[2020-12-17] MEDS: Isosorbide MONOnitrate (24 HR) 30 MG TAB.ER.24H PO SCH (08:12)
[2020-12-17] MEDS ORDERED: lisinopriL 5 MG TABLET PO SCH (09:00)
[2020-12-17] MEDS ORDERED: Metoprolol XL (24 HR) Succ 25 MG TAB.ER.24H PO SCH (09:00)
[2020-12-17] MEDS ORDERED: Furosemide 40 MG/4 ML VIAL IVP SCH (09:00)
[2020-12-17] MEDS ORDERED: Metoprolol XL (24 HR) Succ 50 MG TAB.ER.24H PO SCH (09:00)
[2020-12-17] MEDS: Furosemide 20 MG/2 ML VIAL IVP SCH ×2 (09:03→22:18)
[2020-12-17] MEDS ORDERED: Metoprolol XL (24 HR) Succ 25 MG TAB.ER.24H PO ONE (09:31)
[2020-12-17] MEDS ORDERED: *HR* Enoxaparin 60 MG/0.6 ML SYRINGE SQ SCH (10:30)
[2020-12-17] MEDS: Latanoprost 2.5 ML BOTTLE LEFT EYE SCH (17:37)
[2020-12-18] MEDS: *HR* Enoxaparin 40 MG/0.4 ML SYRINGE SQ SCH (05:38)
[2020-12-18] MEDS: Isosorbide MONOnitrate (24 HR) 30 MG TAB.ER.24H PO SCH (08:26)
[2020-12-18] MEDS: Aspirin 81 MG TAB.CHEW PO SCH (08:26)
[2020-12-18] MEDS: lisinopriL 5 MG TABLET PO SCH (08:29)
[2020-12-18] MEDS: Furosemide 20 MG/2 ML VIAL IVP SCH (08:30)
[2020-12-18] MEDS ORDERED: Metoprolol XL (24 HR) Succ 50 MG TAB.ER.24H PO SCH (09:00)
[2020-12-18 10:01] LABS: Basophils % 0.2 %; Eosinophils % 0.3 %; Hematocrit 38.7 % (35.3-44.9); Hemoglobin 12.4 g/dL (11.5-15.4); Immature Granulocytes % 0.4 % (0-4); Lymphocytes # 1.1 K/mcL (0.6-4.6); Lymphocytes % 9.2 %; Mean Corpuscular Volume 90.6 fL (83.0-100.0); Mean Platelet Volume 11.3 fL (9.4-12.4); Monocytes # 1.1 K/mcL (0.0-1.3); Monocytes % 8.9 %; Neutrophils # 9.7 K/mcL (1.6-8.9); Platelet Count 299 K/mcL (140-400); Red Blood Count 4.27 M/mcL (3.82-4.97); Red Cell Distribution Width 15.3 % (11.5-14.5)
[2020-12-18 10:27] LABS: BUN/Creatinine Ratio 36 (6-26); Blood Urea Nitrogen 27 mg/dL (8-23); Calcium 8.7 mg/dL (8.6-10.3); Carbon Dioxide 30 mEq/L (23-29); Chloride 103 mEq/L (98-107); Glucose 124 mg/dL (70-105); Osmolality,Calculated 291 (280-300); Potassium 3.8 mEq/L (3.5-5.1); Sodium 137 mEq/L (136-145); eGFR For African Americans > 60 (> 60); eGFR For Non-African Americans > 60 (> 60)
[2020-12-18] MEDS: Latanoprost 2.5 ML BOTTLE LEFT EYE SCH (17:55)
[2020-12-18] MEDS: Furosemide 20 MG TABLET PO SCH (17:55)
[2020-12-19] MEDS: *HR* Enoxaparin 40 MG/0.4 ML SYRINGE SQ SCH (04:52)
[2020-12-19 05:37] LABS: Hematocrit 37.5 % (35.3-44.9); Hemoglobin 12.1 g/dL (11.5-15.4); Mean Corpuscular HGB Conc 32.3 g/dL (31.6-35.5); Mean Corpuscular Hemoglobin 28.9 pg (28.0-33.3); Mean Corpuscular Volume 89.5 fL (83.0-100.0); Mean Platelet Volume 11.3 fL (9.4-12.4); Platelet Count 305 K/mcL (140-400); Red Blood Count 4.19 M/mcL (3.82-4.97); Red Cell Distribution Width 15.2 % (11.5-14.5)
[2020-12-19 05:54] LABS: BUN/Creatinine Ratio 39 (6-26); Blood Urea Nitrogen 32 mg/dL (8-23); Calcium 8.5 mg/dL (8.6-10.3); Carbon Dioxide 27 mEq/L (23-29); Chloride 106 mEq/L (98-107); Glucose 97 mg/dL (70-105); Osmolality,Calculated 295 (280-300); Potassium 3.4 mEq/L (3.5-5.1); Sodium 139 mEq/L (136-145); eGFR For African Americans > 60 (> 60); eGFR For Non-African Americans > 60 (> 60)
[2020-12-19] MEDS: Aspirin 81 MG TAB.CHEW PO SCH (08:35)
[2020-12-19] MEDS: Isosorbide MONOnitrate (24 HR) 30 MG TAB.ER.24H PO SCH (08:36)
[2020-12-19] MEDS: lisinopriL 5 MG TABLET PO SCH (08:36)
[2020-12-19] MEDS: Furosemide 20 MG TABLET PO SCH (08:37)
[2020-12-19] MEDS ORDERED: Metoprolol XL (24 HR) Succ 50 MG TAB.ER.24H PO SCH (09:00)
[2020-12-19 09:13] LABS: Magnesium 1.9 mg/dL (1.6-2.6); Phosphorous 2.3 mg/dL (2.7-4.5)
[2020-12-19 10:44] VITALS: BP 92/60
== END 2020-12-19 15:16 | DRG 280 ==
LOC: 2ANU 03:25 → EMEROOARM 03:25 → SUATTDRO 05:07 → 2ANU 05:28 → SUATTDRO 07:27 → 2NNU 15:14 → 3ANU 12-18 19:25
PROVIDERS: ADMIT Internal Medicine; ATTEND Family Medicine